=== PATIENT | male | born 1955 | race Caucasian/White ===

== ENCOUNTER 2023-07-18 09:30 | Outpatient (RCR) | payer OTHER, SELFPAY ==
--- NOTE | 2023-03-01 15:54 | PT.OIE ---
Current Diagnoses Pain in left shoulder (03/01/23) Stiffness of left shoulder, not elsewhere classified (03/01/23) Other specified postprocedural states (03/01/23) Visit Care Team Role Provider Type Quincy Reagan DO Attending Provider Non-Staff Referring Provider Specialty: Orthopedic Surgery Address: [facility] [place], [address] Email: Physical Therapy Initial Evaluation PT-OP-A Visit Information Start: 03/01/23 15:21 Freq: Status: Active Protocol: Document 03/01/23 12:05 DCW (Rec: 03/01/23 15:42 DCW [id number]) Out-Patient Physical Therapy Visit Information Visit Information Visit Type Initial Evaluation Visit Start Time 12:05 Visit Stop Time 12:45 Total Visit Minutes 40 Visit Number 1 Number of REJECTED ITEMS CLERK Visits 0 Evaluation Information Evaluation Date 03/01/23 PT-OP-B Current Condition Start: 03/01/23 15:21 Freq: Status: Active Protocol: Document 03/01/23 12:05 DCW (Rec: 03/01/23 15:42 DCW [id number]) Current Condition History of Current Condition Onset Date 08/17/22 Current Complaints L shoulder pain & stiffness s/ p arthroscopy, biceps tenotomy decompression History of Current Condition Pt is a 67 year old male presenting more than six months s/p L shoulder arthroscopy, biceps tenotomy decompression. Pt reports he underwent post-op therapy, but was discharged at the end of November, was told that they had done all they could for him. At pt's follow-up with his surgeon in December, surgeon felt he required more PT, including US and cold laser, and referred him to this clinic. Has been very compliant with prior HEP, but has not made much progress, and is fairly significantly limited with ROM, due to both weakness and pain. Unable to perform any overhead activities, or reach back or laterally. Unable to reach up to the top shelf at home. Prior Treatments and Tests Prior PT from post-op through November Treatment Goals Patient/Caregiver Goals Improve shoulder ROM and pain levels PT-OP-C Subjective Start: 03/01/23 15:21 Freq: Status: Active Protocol: Document 03/01/23 12:05 DCW (Rec: 03/01/23 15:42 DCW [id number]) OP-PT Subjective Patient Comments Patient Comments I've been using my pulleys, I use the bands, the stick exercises, it's just not getting any better. Patient Reported Progress Same Patient Questionnaires Quick Dash- Upper Extremity Quick Dash UE Score 6.82% Quick Dash UE Impairment 1 to 19% Impaired (Score 1-19) OP-PT Pain Assessment Location Left Shoulder Intensity 4 Scale Used Numeric (0 - 10) PT-OP-E Functional Tests Start: 03/01/23 15:21 Freq: Status: Active Protocol: Document 03/01/23 12:05 DCW (Rec: 03/01/23 15:42 DCW [id number]) Functional Tests Apley's Scratch Test Action 1- Left Anterior opposite shoulder Action 1- Right Lateral opposite shoulder Action 2- Left C6 Action 2- Right T2 Action 3- Left L2 Action 3- Right T8 PT-OP-F Manual Assessment Start: 03/01/23 15:21 Freq: Status: Active Protocol: Document 03/01/23 12:05 DCW (Rec: 03/01/23 15:42 DCW [id number]) Manual Assessments Joint Mobility Assessment Joint Mobility Assessment Limited PROM in joint mobility with all directions PT-OP-K Range of Motion Start: 03/01/23 15:21 Freq: Status: Active Protocol: Document 03/01/23 12:05 DCW (Rec: 03/01/23 15:42 DCW [id number]) Shoulder Goniometric Range of Motion Shoulder Right Active Shoulder ROM WFL Yes Testing Position Sitting Flexion 180 Abduction 160 External Rotation at 0 degrees Abduction 56 Internal Rotation Behind Back (text) T8 Left Passive Shoulder ROM WFL No Testing Position Supine Flexion 125 Abduction 109 External Rotation at 0 degrees Abduction 55 Left Active Shoulder ROM WFL No Testing Position Sitting Flexion 94 Abduction 73 External Rotation at 0 degrees Abduction 44 Internal Rotation Behind Back (text) L2 Shoulder ROM Limitations Shoulder ROM Limitations Soft Tissue Tightness,Muscle Weakness,Muscle Tone,Pain PT-OP-M Strength Start: 03/01/23 15:21 Freq: Status: Active Protocol: Document 03/01/23 12:05 DCW (Rec: 03/01/23 15:42 DCW [id number]) Shoulder Strength Shoulder Manual Muscle Testing Right Flexion 4+ Good+ Abduction (C5) 4+ Good+ External Rotation 4+ Good+ Internal Rotation 4+ Good+ Left Flexion 2 Poor Abduction (C5) 2+ Poor+ External Rotation 4 Good Internal Rotation 4+ Good+ Comments Increased pain with resisted flexion and external rotation PT-OP-R Modalities Start: 03/01/23 15:52 Freq: Status: Active Protocol: Document 03/01/23 12:05 DCW (Rec: 03/01/23 15:54 DCW [id number]) Infrared Treatment Treatment Left Anterior Shoulder Duration (Minutes) 2 Dosage (Joules) 124 Body Position Supine Continuous/Pulsed Continuous PT-OP-T Assessment and Plan Start: 03/01/23 15:21 Freq: Status: Active Protocol: Document 03/01/23 12:05 DCW (Rec: 03/01/23 15:52 DCW [id number]) Physical Therapy Assessment Rehab Potential Rehabilitation Potential Good Evaluation Complexity Number of Personal Factors/Comorbidities 1-2 Number of Body Systems Impaired 1-2 Clinical Presentation at Evaluation Stable Impairments Impairments Activity Tolerance,Functional Activities,Functional Mobility ,Pain,ROM,Soft Tissue Mobility ,Strength Goals Two Impairment Pt has difficulty participating in current HEP due to shoulder weakness Snf Goal (LTG) Pt to improve left shoulder strength to at least 3+/5 in order to improve ability to perform HEP, including overhead activities. LTG Duration 05/30/23 One Impairment Pt demonstrates significant limitations in L shoulder active ROM Assistant Research Scientist Goal (LTG) Pt to improve AROM in both flexion and abduction to at least 120? in order to improve ability to participate in oim architect and placing things away on higher shelves. LTG Duration 05/30/23 Assessment Summary Assessment Pt presents with significant limitations in ROM and weakness six months s/p L shoulder arthroscopy, biceps tenotomy decompression. Pt underwent PT elsewhere, reached a progress plateau, and was discharged. pt's surgeon feels he should be able to continue to progress, and would like continued focus on strengthening, ROM, and mobilization, as well as ultrasound and cold laser. Will benefit from extensive stretching, strengthening, and modalities. Physical Therapy Plan Frequency and Duration Frequency of Treatment 2x/Week Plan of Care Start Date 03/01/23 Plan of Care End Date 05/30/23 Therapeutic Interventions Therapeutic Interventions Gait Training,Home Exercise Program,Joint Mobilizations, Manual Therapy,Neuromuscular Re-education,Patient/Caregiver Education,Self-Care/Home Management,Soft Tissue Mobilization,Therapeutic Activities,Therapeutic Exercises Modalities Cold Pack/Ice Massage,Electric Stimulation,Hot Packs, Infrared Therapy,Ultrasound Next Visit Focus/Plan Next Note Type Treatment Note Next Visit Plan US, laser, Stretching/ flexibility, strengthening
--- NOTE | 2023-03-01 15:56 | PT.OPPOC ---
Physical, Occupational & Speech Therapy At [facility] Current Diagnoses Pain in left shoulder (03/01/23) Stiffness of left shoulder, not elsewhere classified (03/01/23) Other specified postprocedural states (03/01/23) Visit Care Team Role Provider Type Quincy Reagan DO Attending Provider Non-Staff Referring Provider Specialty: Orthopedic Surgery Address: [address] [place] [address], [id number] Email: Plan Of Care PT-OP-T Assessment and Plan Start: 03/01/23 15:21 Freq: Status: Active Protocol: Document 03/01/23 12:05 DCW (Rec: 03/01/23 15:52 DCW [id number]) Physical Therapy Assessment Rehab Potential Rehabilitation Potential Good Evaluation Complexity Number of Personal Factors/Comorbidities 1-2 Number of Body Systems Impaired 1-2 Clinical Presentation at Evaluation Stable Impairments Impairments Activity Tolerance,Functional Activities,Functional Mobility ,Pain,ROM,Soft Tissue Mobility ,Strength Goals Two Impairment Pt has difficulty participating in current HEP due to shoulder weakness Retail Seasonal Specialist Goal (LTG) Pt to improve left shoulder strength to at least 3+/5 in order to improve ability to perform HEP, including overhead activities. LTG Duration 05/30/23 One Impairment Pt demonstrates significant limitations in L shoulder active ROM Jail Goal (LTG) Pt to improve AROM in both flexion and abduction to at least 120? in order to improve ability to participate in director data and placing things away on higher shelves. LTG Duration 05/30/23 Assessment Summary Assessment Pt presents with significant limitations in ROM and weakness six months s/p L shoulder arthroscopy, biceps tenotomy decompression. Pt underwent PT elsewhere, reached a progress plateau, and was discharged. pt's surgeon feels he should be able to continue to progress, and would like continued focus on strengthening, ROM, and mobilization, as well as ultrasound and cold laser. Will benefit from extensive stretching, strengthening, and modalities. Physical Therapy Plan Frequency and Duration Frequency of Treatment 2x/Week Plan of Care Start Date 03/01/23 Plan of Care End Date 05/30/23 Therapeutic Interventions Therapeutic Interventions Gait Training,Home Exercise Program,Joint Mobilizations, Manual Therapy,Neuromuscular Re-education,Patient/Caregiver Education,Self-Care/Home Management,Soft Tissue Mobilization,Therapeutic Activities,Therapeutic Exercises Modalities Cold Pack/Ice Massage,Electric Stimulation,Hot Packs, Infrared Therapy,Ultrasound Next Visit Focus/Plan Next Note Type Treatment Note Next Visit Plan US, laser, Stretching/ flexibility, strengthening Plan of Care Dates Plan of Care Start Date 03/01/23 Plan of Care End Date 05/30/23 Electronically Signed by: Pierre Rosario, PT 03/01/23 4831 If you are in agreement with this Plan of Care, please return a signed and dated copy. I have reviewed this Plan of Care and certify that the skilled therapy services above are required to meet the patient?s needs. Physician Signature Date Printed Name and Credentials Clinical Instructor Signature Printed Name and Credentials
--- NOTE | 2023-05-02 11:03 | PT.OTN ---
Current Diagnoses Pain in left shoulder (05/02/23) Stiffness of left shoulder, not elsewhere classified (05/02/23) Other specified postprocedural states (05/02/23) Physical Therapy Treatment Note PT-OP-A Visit Information Start: 03/01/23 15:21 Freq: Status: Active Protocol: Document 05/02/23 10:15 DCW (Rec: 05/02/23 11:03 DCW [id number]) Out-Patient Physical Therapy Visit Information Visit Information Visit Type Treatment Note Visit Start Time 10:15 Visit Stop Time 11:00 Total Visit Minutes 45 Visit Number 2 Number of CHEMICAL PROCESS PROJECT ENGINEER Visits 0 Evaluation Information Evaluation Date 03/01/23 PT-OP-B Current Condition Start: 03/01/23 15:21 Freq: Status: Active Protocol: Document 03/01/23 12:05 DCW (Rec: 03/01/23 15:42 DCW [id number]) Current Condition History of Current Condition Onset Date 08/17/22 Current Complaints L shoulder pain & stiffness s/ p arthroscopy, biceps tenotomy decompression History of Current Condition Pt is a 67 year old male presenting more than six months s/p L shoulder arthroscopy, biceps tenotomy decompression. Pt reports he underwent post-op therapy, but was discharged at the end of November, was told that they had done all they could for him. At pt's follow-up with his surgeon in December, surgeon felt he required more PT, including US and cold laser, and referred him to this clinic. Has been very compliant with prior HEP, but has not made much progress, and is fairly significantly limited with ROM, due to both weakness and pain. Unable to perform any overhead activities, or reach back or laterally. Unable to reach up to the top shelf at home. Prior Treatments and Tests Prior PT from post-op through November Treatment Goals Patient/Caregiver Goals Improve shoulder ROM and pain levels PT-OP-C Subjective Start: 03/01/23 15:21 Freq: Status: Active Protocol: Document 05/02/23 10:15 DCW (Rec: 05/02/23 11:03 DCW [id number]) OP-PT Subjective Patient Comments Patient Comments Pt returns to PT today, reports he just got back from his trip yesterday, and while he wasn't able to do a lot of exercises, he was trying to stay active and used his arm a lot. PT-OP-E Functional Tests Start: 03/01/23 15:21 Freq: Status: Active Protocol: Document 03/01/23 12:05 DCW (Rec: 03/01/23 15:42 DCW [id number]) Functional Tests Apley's Scratch Test Action 1- Left Anterior opposite shoulder Action 1- Right Lateral opposite shoulder Action 2- Left C6 Action 2- Right T2 Action 3- Left L2 Action 3- Right T8 PT-OP-F Manual Assessment Start: 03/01/23 15:21 Freq: Status: Active Protocol: Document 03/01/23 12:05 DCW (Rec: 03/01/23 15:42 DCW [id number]) Manual Assessments Joint Mobility Assessment Joint Mobility Assessment Limited PROM in joint mobility with all directions PT-OP-K Range of Motion Start: 03/01/23 15:21 Freq: Status: Active Protocol: Document 03/01/23 12:05 DCW (Rec: 03/01/23 15:42 DCW [id number]) Shoulder Goniometric Range of Motion Shoulder Right Active Shoulder ROM WFL Yes Testing Position Sitting Flexion 180 Abduction 160 External Rotation at 0 degrees Abduction 56 Internal Rotation Behind Back (text) T8 Left Passive Shoulder ROM WFL No Testing Position Supine Flexion 125 Abduction 109 External Rotation at 0 degrees Abduction 55 Left Active Shoulder ROM WFL No Testing Position Sitting Flexion 94 Abduction 73 External Rotation at 0 degrees Abduction 44 Internal Rotation Behind Back (text) L2 Shoulder ROM Limitations Shoulder ROM Limitations Soft Tissue Tightness,Muscle Weakness,Muscle Tone,Pain PT-OP-M Strength Start: 03/01/23 15:21 Freq: Status: Active Protocol: Document 03/01/23 12:05 DCW (Rec: 03/01/23 15:42 DCW [id number]) Shoulder Strength Shoulder Manual Muscle Testing Right Flexion 4+ Good+ Abduction (C5) 4+ Good+ External Rotation 4+ Good+ Internal Rotation 4+ Good+ Left Flexion 2 Poor Abduction (C5) 2+ Poor+ External Rotation 4 Good Internal Rotation 4+ Good+ Comments Increased pain with resisted flexion and external rotation PT-OP-Q Treatments Start: 03/01/23 15:21 Freq: Status: Active Protocol: Document 05/02/23 10:15 DCW (Rec: 05/02/23 11:03 DCW [id number]) Cardio Equipment Upper Body Ergometer (UBE) Duration (Minutes) 5 RPM 60 Seat Position 13 Height 3 Therapeutic Exercises Supine Exercises Flexion Supine Exercise Name Flexion /c PVC Side bilateral Resistance 10# Sitting Exercises PROM Sitting Exercise Name Pulleys - Flexion, Abduction Manual Therapy Treatment Joint Mobilizations Scapulothoracic Joint L scapulothoracic Direction Medial/Lateral Grade III Body Position Supine GH Joint L GH Direction Inferior Grade III Body Position Supine PT-OP-R Modalities Start: 03/01/23 15:52 Freq: Status: Active Protocol: Document 05/02/23 10:15 DCW (Rec: 05/02/23 11:03 DCW [id number]) Infrared Treatment Treatment Left Anterior Shoulder Duration (Minutes) 2 Dosage (Joules) 124 Body Position Supine Continuous/Pulsed Continuous Ultrasound Therapy Treatment Left Anterior Shoulder Treatment Duration (minutes) 8 Patient Position Supine Coupling Medium Ultrasound Gel Applicator Size (cm2) 5 Frequency Setting (mHz) 1 Mode Setting Continuous Duty Cycle 100% Intensity Setting (w/cm2) 1.0 PT-OP-T Assessment and Plan Start: 03/01/23 15:21 Freq: Status: Active Protocol: Document 05/02/23 10:15 DCW (Rec: 05/02/23 11:03 DCW [id number]) Physical Therapy Assessment Impairments Impairments Activity Tolerance,Functional Activities,Functional Mobility ,Pain,ROM,Soft Tissue Mobility ,Strength Goals Two Impairment Pt has difficulty participating in current HEP due to shoulder weakness Half-Way Goal (LTG) Pt to improve left shoulder strength to at least 3+/5 in order to improve ability to perform HEP, including overhead activities. LTG Duration 05/30/23 One Impairment Pt demonstrates significant limitations in L shoulder active ROM Sorter Pricer Goal (LTG) Pt to improve AROM in both flexion and abduction to at least 120? in order to improve ability to participate in api product manager and placing things away on higher shelves. LTG Duration 05/30/23 Assessment Summary Assessment Pt tolerated treatment well, admitted he was a little sore following joint mobs. Was able to increase PROM from 125? on pulleys to 145? with supine flexion using a 10# weighted wand. Physical Therapy Plan Frequency and Duration Frequency of Treatment 2x/Week Plan of Care Start Date 03/01/23 Plan of Care End Date 05/30/23 Therapeutic Interventions Therapeutic Interventions Gait Training,Home Exercise Program,Joint Mobilizations, Manual Therapy,Neuromuscular Re-education,Patient/Caregiver Education,Self-Care/Home Management,Soft Tissue Mobilization,Therapeutic Activities,Therapeutic Exercises Modalities Cold Pack/Ice Massage,Electric Stimulation,Hot Packs, Infrared Therapy,Ultrasound Next Visit Focus/Plan Next Note Type Treatment Note Next Visit Plan US, laser, Stretching/ flexibility, strengthening
--- NOTE | 2023-05-06 10:59 | PT.OTN ---
Current Diagnoses Pain in left shoulder (05/06/23) Stiffness of left shoulder, not elsewhere classified (05/06/23) Other specified postprocedural states (05/06/23) Physical Therapy Treatment Note PT-OP-A Visit Information Start: 03/01/23 15:21 Freq: Status: Active Protocol: Document 05/06/23 10:15 DCW (Rec: 05/06/23 10:58 DCW [id number]) Out-Patient Physical Therapy Visit Information Visit Information Visit Type Treatment Note Visit Start Time 10:15 Visit Stop Time 11:00 Total Visit Minutes 45 Visit Number 3 Number of BUSINESS SYSTEMS ADVISOR Visits 0 Evaluation Information Evaluation Date 03/01/23 PT-OP-B Current Condition Start: 03/01/23 15:21 Freq: Status: Active Protocol: Document 03/01/23 12:05 DCW (Rec: 03/01/23 15:42 DCW [id number]) Current Condition History of Current Condition Onset Date 08/17/22 Current Complaints L shoulder pain & stiffness s/ p arthroscopy, biceps tenotomy decompression History of Current Condition Pt is a 67 year old male presenting more than six months s/p L shoulder arthroscopy, biceps tenotomy decompression. Pt reports he underwent post-op therapy, but was discharged at the end of November, was told that they had done all they could for him. At pt's follow-up with his surgeon in December, surgeon felt he required more PT, including US and cold laser, and referred him to this clinic. Has been very compliant with prior HEP, but has not made much progress, and is fairly significantly limited with ROM, due to both weakness and pain. Unable to perform any overhead activities, or reach back or laterally. Unable to reach up to the top shelf at home. Prior Treatments and Tests Prior PT from post-op through November Treatment Goals Patient/Caregiver Goals Improve shoulder ROM and pain levels PT-OP-C Subjective Start: 03/01/23 15:21 Freq: Status: Active Protocol: Document 05/06/23 10:15 DCW (Rec: 05/06/23 10:58 DCW [id number]) OP-PT Subjective Patient Comments Patient Comments Pt notes his shoulder is feeling pretty good today. PT-OP-E Functional Tests Start: 03/01/23 15:21 Freq: Status: Active Protocol: Document 03/01/23 12:05 DCW (Rec: 03/01/23 15:42 DCW [id number]) Functional Tests Apley's Scratch Test Action 1- Left Anterior opposite shoulder Action 1- Right Lateral opposite shoulder Action 2- Left C6 Action 2- Right T2 Action 3- Left L2 Action 3- Right T8 PT-OP-F Manual Assessment Start: 03/01/23 15:21 Freq: Status: Active Protocol: Document 03/01/23 12:05 DCW (Rec: 03/01/23 15:42 DCW [id number]) Manual Assessments Joint Mobility Assessment Joint Mobility Assessment Limited PROM in joint mobility with all directions PT-OP-K Range of Motion Start: 03/01/23 15:21 Freq: Status: Active Protocol: Document 03/01/23 12:05 DCW (Rec: 03/01/23 15:42 DCW [id number]) Shoulder Goniometric Range of Motion Shoulder Right Active Shoulder ROM WFL Yes Testing Position Sitting Flexion 180 Abduction 160 External Rotation at 0 degrees Abduction 56 Internal Rotation Behind Back (text) T8 Left Passive Shoulder ROM WFL No Testing Position Supine Flexion 125 Abduction 109 External Rotation at 0 degrees Abduction 55 Left Active Shoulder ROM WFL No Testing Position Sitting Flexion 94 Abduction 73 External Rotation at 0 degrees Abduction 44 Internal Rotation Behind Back (text) L2 Shoulder ROM Limitations Shoulder ROM Limitations Soft Tissue Tightness,Muscle Weakness,Muscle Tone,Pain PT-OP-M Strength Start: 03/01/23 15:21 Freq: Status: Active Protocol: Document 03/01/23 12:05 DCW (Rec: 03/01/23 15:42 DCW [id number]) Shoulder Strength Shoulder Manual Muscle Testing Right Flexion 4+ Good+ Abduction (C5) 4+ Good+ External Rotation 4+ Good+ Internal Rotation 4+ Good+ Left Flexion 2 Poor Abduction (C5) 2+ Poor+ External Rotation 4 Good Internal Rotation 4+ Good+ Comments Increased pain with resisted flexion and external rotation PT-OP-Q Treatments Start: 03/01/23 15:21 Freq: Status: Active Protocol: Document 05/06/23 10:15 DCW (Rec: 05/06/23 10:58 DCW [id number]) Cardio Equipment Upper Body Ergometer (UBE) Duration (Minutes) 6 RPM 60 Seat Position 13 Height 3 Therapeutic Exercises Supine Exercises Flexion Supine Exercise Name Flexion /c PVC Side bilateral Resistance 10# Sitting Exercises PROM Sitting Exercise Name Pulleys - Flexion, Abduction Standing Exercises Wall ball Standing Exercise Name Ball walk-up into end-range stretch Side left PROM Standing Exercise Name Pulleys - Internal Rotation Side left Manual Therapy Treatment Joint Mobilizations Scapulothoracic Joint L scapulothoracic Direction Medial/Lateral Grade III Body Position Supine GH Joint L GH Direction Inferior Grade III Body Position Supine PT-OP-R Modalities Start: 03/01/23 15:52 Freq: Status: Active Protocol: Document 05/06/23 10:15 DCW (Rec: 05/06/23 10:58 DCW [id number]) Infrared Treatment Treatment Left Anterior Shoulder Duration (Minutes) 2 Dosage (Joules) 124 Body Position Supine Continuous/Pulsed Continuous Ultrasound Therapy Treatment Left Anterior Shoulder Treatment Duration (minutes) 8 Patient Position Supine Coupling Medium Ultrasound Gel Applicator Size (cm2) 5 Frequency Setting (mHz) 1 Mode Setting Continuous Duty Cycle 100% Intensity Setting (w/cm2) 1.0 PT-OP-T Assessment and Plan Start: 03/01/23 15:21 Freq: Status: Active Protocol: Document 05/06/23 10:15 DCW (Rec: 05/06/23 10:58 DCW [id number]) Physical Therapy Assessment Impairments Impairments Activity Tolerance,Functional Activities,Functional Mobility ,Pain,ROM,Soft Tissue Mobility ,Strength Goals Two Impairment Pt has difficulty participating in current HEP due to shoulder weakness Cytology Technologist Goal (LTG) Pt to improve left shoulder strength to at least 3+/5 in order to improve ability to perform HEP, including overhead activities. LTG Duration 05/30/23 One Impairment Pt demonstrates significant limitations in L shoulder active ROM Cytology Technologist Goal (LTG) Pt to improve AROM in both flexion and abduction to at least 120? in order to improve ability to participate in noodle press operator and placing things away on higher shelves. LTG Duration 05/30/23 Assessment Summary Assessment Pt did very well today, agreeable to add norberto IR to HEP, less soreness with manual treatment/joint mobs today. Physical Therapy Plan Frequency and Duration Frequency of Treatment 2x/Week Plan of Care Start Date 03/01/23 Plan of Care End Date 05/30/23 Therapeutic Interventions Therapeutic Interventions Gait Training,Home Exercise Program,Joint Mobilizations, Manual Therapy,Neuromuscular Re-education,Patient/Caregiver Education,Self-Care/Home Management,Soft Tissue Mobilization,Therapeutic Activities,Therapeutic Exercises Modalities Cold Pack/Ice Massage,Electric Stimulation,Hot Packs, Infrared Therapy,Ultrasound Next Visit Focus/Plan Next Note Type Treatment Note Next Visit Plan US, laser, Stretching/ flexibility, strengthening
--- NOTE | 2023-05-09 11:00 | PT.OTN ---
Current Diagnoses Pain in left shoulder (05/09/23) Stiffness of left shoulder, not elsewhere classified (05/09/23) Other specified postprocedural states (05/09/23) Physical Therapy Treatment Note PT-OP-A Visit Information Start: 03/01/23 15:21 Freq: Status: Active Protocol: Document 05/09/23 10:15 DCW (Rec: 05/09/23 11:00 DCW [id number]) Out-Patient Physical Therapy Visit Information Visit Information Visit Type Treatment Note Visit Start Time 10:15 Visit Stop Time 11:00 Total Visit Minutes 45 Visit Number 4 Number of FORMULA TECHNICIAN Visits 0 Evaluation Information Evaluation Date 03/01/23 PT-OP-B Current Condition Start: 03/01/23 15:21 Freq: Status: Active Protocol: Document 03/01/23 12:05 DCW (Rec: 03/01/23 15:42 DCW [id number]) Current Condition History of Current Condition Onset Date 08/17/22 Current Complaints L shoulder pain & stiffness s/ p arthroscopy, biceps tenotomy decompression History of Current Condition Pt is a 67 year old male presenting more than six months s/p L shoulder arthroscopy, biceps tenotomy decompression. Pt reports he underwent post-op therapy, but was discharged at the end of November, was told that they had done all they could for him. At pt's follow-up with his surgeon in December, surgeon felt he required more PT, including US and cold laser, and referred him to this clinic. Has been very compliant with prior HEP, but has not made much progress, and is fairly significantly limited with ROM, due to both weakness and pain. Unable to perform any overhead activities, or reach back or laterally. Unable to reach up to the top shelf at home. Prior Treatments and Tests Prior PT from post-op through November Treatment Goals Patient/Caregiver Goals Improve shoulder ROM and pain levels PT-OP-C Subjective Start: 03/01/23 15:21 Freq: Status: Active Protocol: Document 05/09/23 10:15 DCW (Rec: 05/09/23 11:00 DCW [id number]) OP-PT Subjective Patient Comments Patient Comments Pt notes it is a little bit sore still when trying to lift his arm overhead. PT-OP-E Functional Tests Start: 03/01/23 15:21 Freq: Status: Active Protocol: Document 03/01/23 12:05 DCW (Rec: 03/01/23 15:42 DCW [id number]) Functional Tests Apley's Scratch Test Action 1- Left Anterior opposite shoulder Action 1- Right Lateral opposite shoulder Action 2- Left C6 Action 2- Right T2 Action 3- Left L2 Action 3- Right T8 PT-OP-F Manual Assessment Start: 03/01/23 15:21 Freq: Status: Active Protocol: Document 03/01/23 12:05 DCW (Rec: 03/01/23 15:42 DCW [id number]) Manual Assessments Joint Mobility Assessment Joint Mobility Assessment Limited PROM in joint mobility with all directions PT-OP-K Range of Motion Start: 03/01/23 15:21 Freq: Status: Active Protocol: Document 03/01/23 12:05 DCW (Rec: 03/01/23 15:42 DCW [id number]) Shoulder Goniometric Range of Motion Shoulder Right Active Shoulder ROM WFL Yes Testing Position Sitting Flexion 180 Abduction 160 External Rotation at 0 degrees Abduction 56 Internal Rotation Behind Back (text) T8 Left Passive Shoulder ROM WFL No Testing Position Supine Flexion 125 Abduction 109 External Rotation at 0 degrees Abduction 55 Left Active Shoulder ROM WFL No Testing Position Sitting Flexion 94 Abduction 73 External Rotation at 0 degrees Abduction 44 Internal Rotation Behind Back (text) L2 Shoulder ROM Limitations Shoulder ROM Limitations Soft Tissue Tightness,Muscle Weakness,Muscle Tone,Pain PT-OP-M Strength Start: 03/01/23 15:21 Freq: Status: Active Protocol: Document 03/01/23 12:05 DCW (Rec: 03/01/23 15:42 DCW [id number]) Shoulder Strength Shoulder Manual Muscle Testing Right Flexion 4+ Good+ Abduction (C5) 4+ Good+ External Rotation 4+ Good+ Internal Rotation 4+ Good+ Left Flexion 2 Poor Abduction (C5) 2+ Poor+ External Rotation 4 Good Internal Rotation 4+ Good+ Comments Increased pain with resisted flexion and external rotation PT-OP-Q Treatments Start: 03/01/23 15:21 Freq: Status: Active Protocol: Document 05/09/23 10:15 DCW (Rec: 05/09/23 11:00 DCW [id number]) Cardio Equipment Upper Body Ergometer (UBE) Duration (Minutes) 6 RPM 60 Seat Position 13 Height 4.5 Therapeutic Exercises Sidelying Exercises Abduction Sidelying Exercise Name Shoulder Abduction Side left Other Exercises Wall Push-ups Other Exercise Name Wall push-ups Reps/Minutes x15 each Comments <> and W hand positions Resisted ambulation Other Exercise Name Resisted UE side-stepping Resistance Green Manual Therapy Treatment Joint Mobilizations Scapulothoracic Joint L scapulothoracic Direction Medial/Lateral Grade III Body Position Supine GH Joint L GH Direction Inferior Grade III Body Position Supine PT-OP-R Modalities Start: 03/01/23 15:52 Freq: Status: Active Protocol: Document 05/09/23 10:15 DCW (Rec: 05/09/23 11:00 WYW [id number]) Infrared Treatment Treatment Left Anterior Shoulder Duration (Minutes) 2 Dosage (Joules) 124 Body Position Supine Continuous/Pulsed Continuous Ultrasound Therapy Treatment Left Anterior Shoulder Treatment Duration (minutes) 8 Patient Position Supine Coupling Medium Ultrasound Gel Applicator Size (cm2) 5 Frequency Setting (mHz) 1 Mode Setting Continuous Duty Cycle 100% Intensity Setting (w/cm2) 1.0 PT-OP-T Assessment and Plan Start: 03/01/23 15:21 Freq: Status: Active Protocol: Document 05/09/23 10:15 DCW (Rec: 05/09/23 11:00 [facility] [id number]) Physical Therapy Assessment Impairments Impairments Activity Tolerance,Functional Activities,Functional Mobility ,Pain,ROM,Soft Tissue Mobility ,Strength Goals Two Impairment Pt has difficulty participating in current HEP due to shoulder weakness Shelter Goal (LTG) Pt to improve left shoulder strength to at least 3+/5 in order to improve ability to perform HEP, including overhead activities. LTG Duration 05/30/23 One Impairment Pt demonstrates significant limitations in L shoulder active ROM Yarder Puncher Goal (LTG) Pt to improve AROM in both flexion and abduction to at least 120? in order to improve ability to participate in sergeant of corrections and placing things away on higher shelves. LTG Duration 05/30/23 Assessment Summary Assessment PROM still improving nicely, although pt not demonstrating any real improvement with AROM yet. Still tolerating joint mobs well, has been very compliant with his HEP. Physical Therapy Plan Frequency and Duration Frequency of Treatment 2x/Week Plan of Care Start Date 03/01/23 Plan of Care End Date 05/30/23 Therapeutic Interventions Therapeutic Interventions Gait Training,Home Exercise Program,Joint Mobilizations, Manual Therapy,Neuromuscular Re-education,Patient/Caregiver Education,Self-Care/Home Management,Soft Tissue Mobilization,Therapeutic Activities,Therapeutic Exercises Modalities Cold Pack/Ice Massage,Electric Stimulation,Hot Packs, Infrared Therapy,Ultrasound Next Visit Focus/Plan Next Note Type Treatment Note Next Visit Plan US, laser, Stretching/ flexibility, strengthening
--- NOTE | 2023-05-13 10:57 | PT.OTN ---
Current Diagnoses Pain in left shoulder (05/13/23) Stiffness of left shoulder, not elsewhere classified (05/13/23) Other specified postprocedural states (05/13/23) Physical Therapy Treatment Note PT-OP-A Visit Information Start: 03/01/23 15:21 Freq: Status: Active Protocol: Document 05/13/23 10:15 DCW (Rec: 05/13/23 10:57 DCW [id number]) Out-Patient Physical Therapy Visit Information Visit Information Visit Type Treatment Note Visit Start Time 10:15 Visit Stop Time 11:00 Total Visit Minutes 45 Visit Number 5 Number of PROBATION SUPERVISOR Visits 0 Evaluation Information Evaluation Date 03/01/23 PT-OP-B Current Condition Start: 03/01/23 15:21 Freq: Status: Active Protocol: Document 03/01/23 12:05 DCW (Rec: 03/01/23 15:42 DCW [id number]) Current Condition History of Current Condition Onset Date 08/17/22 Current Complaints L shoulder pain & stiffness s/ p arthroscopy, biceps tenotomy decompression History of Current Condition Pt is a 67 year old male presenting more than six months s/p L shoulder arthroscopy, biceps tenotomy decompression. Pt reports he underwent post-op therapy, but was discharged at the end of November, was told that they had done all they could for him. At pt's follow-up with his surgeon in December, surgeon felt he required more PT, including US and cold laser, and referred him to this clinic. Has been very compliant with prior HEP, but has not made much progress, and is fairly significantly limited with ROM, due to both weakness and pain. Unable to perform any overhead activities, or reach back or laterally. Unable to reach up to the top shelf at home. Prior Treatments and Tests Prior PT from post-op through November Treatment Goals Patient/Caregiver Goals Improve shoulder ROM and pain levels PT-OP-C Subjective Start: 03/01/23 15:21 Freq: Status: Active Protocol: Document 05/13/23 10:15 DCW (Rec: 05/13/23 10:57 DCW [id number]) OP-PT Subjective Patient Comments Patient Comments It's a little sore, but not too bad. PT-OP-E Functional Tests Start: 03/01/23 15:21 Freq: Status: Active Protocol: Document 03/01/23 12:05 DCW (Rec: 03/01/23 15:42 DCW [id number]) Functional Tests Apley's Scratch Test Action 1- Left Anterior opposite shoulder Action 1- Right Lateral opposite shoulder Action 2- Left C6 Action 2- Right T2 Action 3- Left L2 Action 3- Right T8 PT-OP-F Manual Assessment Start: 03/01/23 15:21 Freq: Status: Active Protocol: Document 03/01/23 12:05 DCW (Rec: 03/01/23 15:42 DCW [id number]) Manual Assessments Joint Mobility Assessment Joint Mobility Assessment Limited PROM in joint mobility with all directions PT-OP-K Range of Motion Start: 03/01/23 15:21 Freq: Status: Active Protocol: Document 03/01/23 12:05 DCW (Rec: 03/01/23 15:42 DCW [id number]) Shoulder Goniometric Range of Motion Shoulder Right Active Shoulder ROM WFL Yes Testing Position Sitting Flexion 180 Abduction 160 External Rotation at 0 degrees Abduction 56 Internal Rotation Behind Back (text) T8 Left Passive Shoulder ROM WFL No Testing Position Supine Flexion 125 Abduction 109 External Rotation at 0 degrees Abduction 55 Left Active Shoulder ROM WFL No Testing Position Sitting Flexion 94 Abduction 73 External Rotation at 0 degrees Abduction 44 Internal Rotation Behind Back (text) L2 Shoulder ROM Limitations Shoulder ROM Limitations Soft Tissue Tightness,Muscle Weakness,Muscle Tone,Pain PT-OP-M Strength Start: 03/01/23 15:21 Freq: Status: Active Protocol: Document 03/01/23 12:05 DCW (Rec: 03/01/23 15:42 DCW [id number]) Shoulder Strength Shoulder Manual Muscle Testing Right Flexion 4+ Good+ Abduction (C5) 4+ Good+ External Rotation 4+ Good+ Internal Rotation 4+ Good+ Left Flexion 2 Poor Abduction (C5) 2+ Poor+ External Rotation 4 Good Internal Rotation 4+ Good+ Comments Increased pain with resisted flexion and external rotation PT-OP-Q Treatments Start: 03/01/23 15:21 Freq: Status: Active Protocol: Document 05/13/23 10:15 DCW (Rec: 05/13/23 10:57 DCW [id number]) Cardio Equipment Upper Body Ergometer (UBE) Duration (Minutes) 6 RPM 60 Seat Position 13 Height 4.5 Therapeutic Exercises Supine Exercises Flexion Supine Exercise Name Flexion /c PVC Side bilateral Resistance 10# Other Exercises Wall clock Other Exercise Name Wall clock Side bilateral Resistance Green Wall Push-ups Other Exercise Name Wall push-ups Reps/Minutes x15 each Comments <> and W hand positions Resisted ambulation Other Exercise Name Resisted UE side-stepping Resistance Green Manual Therapy Treatment Joint Mobilizations Scapulothoracic Joint L scapulothoracic Direction Medial/Lateral Grade III Body Position Supine GH Joint L GH Direction Inferior Grade III Body Position Supine PT-OP-R Modalities Start: 03/01/23 15:52 Freq: Status: Active Protocol: Document 05/13/23 10:15 DCW (Rec: 05/13/23 10:57 DCW [id number]) Infrared Treatment Treatment Left Anterior Shoulder Duration (Minutes) 2 Dosage (Joules) 124 Body Position Supine Continuous/Pulsed Continuous Ultrasound Therapy Treatment Left Anterior Shoulder Treatment Duration (minutes) 8 Patient Position Supine Coupling Medium Ultrasound Gel Applicator Size (cm2) 5 Frequency Setting (mHz) 1 Mode Setting Continuous Duty Cycle 100% Intensity Setting (w/cm2) 1.0 PT-OP-T Assessment and Plan Start: 03/01/23 15:21 Freq: Status: Active Protocol: Document 05/13/23 10:15 DCW (Rec: 05/13/23 10:57 DCW [id number]) Physical Therapy Assessment Impairments Impairments Activity Tolerance,Functional Activities,Functional Mobility ,Pain,ROM,Soft Tissue Mobility ,Strength Goals Two Impairment Pt has difficulty participating in current HEP due to shoulder weakness Phys Ther Goal (LTG) Pt to improve left shoulder strength to at least 3+/5 in order to improve ability to perform HEP, including overhead activities. LTG Duration 05/30/23 One Impairment Pt demonstrates significant limitations in L shoulder active ROM Phys Ther Goal (LTG) Pt to improve AROM in both flexion and abduction to at least 120? in order to improve ability to participate in low raw sugar cutter and placing things away on higher shelves. LTG Duration 05/30/23 Assessment Summary Assessment Pt showing improvement with strength and activity tolerance through left arm, tolerating treatment well today. Physical Therapy Plan Frequency and Duration Frequency of Treatment 2x/Week Plan of Care Start Date 03/01/23 Plan of Care End Date 05/30/23 Therapeutic Interventions Therapeutic Interventions Gait Training,Home Exercise Program,Joint Mobilizations, Manual Therapy,Neuromuscular Re-education,Patient/Caregiver Education,Self-Care/Home Management,Soft Tissue Mobilization,Therapeutic Activities,Therapeutic Exercises Modalities Cold Pack/Ice Massage,Electric Stimulation,Hot Packs, Infrared Therapy,Ultrasound Next Visit Focus/Plan Next Note Type Treatment Note Next Visit Plan US, laser, Stretching/ flexibility, strengthening
--- NOTE | 2023-05-16 10:58 | PT.OTN ---
Current Diagnoses Pain in left shoulder (05/16/23) Stiffness of left shoulder, not elsewhere classified (05/16/23) Other specified postprocedural states (05/16/23) Physical Therapy Treatment Note PT-OP-A Visit Information Start: 03/01/23 15:21 Freq: Status: Active Protocol: Document 05/16/23 10:15 DCW (Rec: 05/16/23 10:58 DCW [id number]) Out-Patient Physical Therapy Visit Information Visit Information Visit Type Treatment Note Visit Start Time 10:15 Visit Stop Time 11:00 Total Visit Minutes 45 Visit Number 5 Number of VIDEO PRODUCTION INTERN Visits 0 Evaluation Information Evaluation Date 03/01/23 PT-OP-B Current Condition Start: 03/01/23 15:21 Freq: Status: Active Protocol: Document 03/01/23 12:05 DCW (Rec: 03/01/23 15:42 DCW [id number]) Current Condition History of Current Condition Onset Date 08/17/22 Current Complaints L shoulder pain & stiffness s/ p arthroscopy, biceps tenotomy decompression History of Current Condition Pt is a 67 year old male presenting more than six months s/p L shoulder arthroscopy, biceps tenotomy decompression. Pt reports he underwent post-op therapy, but was discharged at the end of November, was told that they had done all they could for him. At pt's follow-up with his surgeon in December, surgeon felt he required more PT, including US and cold laser, and referred him to this clinic. Has been very compliant with prior HEP, but has not made much progress, and is fairly significantly limited with ROM, due to both weakness and pain. Unable to perform any overhead activities, or reach back or laterally. Unable to reach up to the top shelf at home. Prior Treatments and Tests Prior PT from post-op through November Treatment Goals Patient/Caregiver Goals Improve shoulder ROM and pain levels PT-OP-C Subjective Start: 03/01/23 15:21 Freq: Status: Active Protocol: Document 05/16/23 10:15 DCW (Rec: 05/16/23 10:58 DCW [id number]) OP-PT Subjective Patient Comments Patient Comments Pt can't really tell if there has been much improvement in day to day function. PT-OP-E Functional Tests Start: 03/01/23 15:21 Freq: Status: Active Protocol: Document 03/01/23 12:05 DCW (Rec: 03/01/23 15:42 DCW [id number]) Functional Tests Apley's Scratch Test Action 1- Left Anterior opposite shoulder Action 1- Right Lateral opposite shoulder Action 2- Left C6 Action 2- Right T2 Action 3- Left L2 Action 3- Right T8 PT-OP-F Manual Assessment Start: 03/01/23 15:21 Freq: Status: Active Protocol: Document 03/01/23 12:05 DCW (Rec: 03/01/23 15:42 DCW [id number]) Manual Assessments Joint Mobility Assessment Joint Mobility Assessment Limited PROM in joint mobility with all directions PT-OP-K Range of Motion Start: 03/01/23 15:21 Freq: Status: Active Protocol: Document 03/01/23 12:05 DCW (Rec: 03/01/23 15:42 DCW [id number]) Shoulder Goniometric Range of Motion Shoulder Right Active Shoulder ROM WFL Yes Testing Position Sitting Flexion 180 Abduction 160 External Rotation at 0 degrees Abduction 56 Internal Rotation Behind Back (text) T8 Left Passive Shoulder ROM WFL No Testing Position Supine Flexion 125 Abduction 109 External Rotation at 0 degrees Abduction 55 Left Active Shoulder ROM WFL No Testing Position Sitting Flexion 94 Abduction 73 External Rotation at 0 degrees Abduction 44 Internal Rotation Behind Back (text) L2 Shoulder ROM Limitations Shoulder ROM Limitations Soft Tissue Tightness,Muscle Weakness,Muscle Tone,Pain PT-OP-M Strength Start: 03/01/23 15:21 Freq: Status: Active Protocol: Document 03/01/23 12:05 DCW (Rec: 03/01/23 15:42 DCW [id number]) Shoulder Strength Shoulder Manual Muscle Testing Right Flexion 4+ Good+ Abduction (C5) 4+ Good+ External Rotation 4+ Good+ Internal Rotation 4+ Good+ Left Flexion 2 Poor Abduction (C5) 2+ Poor+ External Rotation 4 Good Internal Rotation 4+ Good+ Comments Increased pain with resisted flexion and external rotation PT-OP-Q Treatments Start: 03/01/23 15:21 Freq: Status: Active Protocol: Document 05/16/23 10:15 DCW (Rec: 05/16/23 10:58 DCW [id number]) Cardio Equipment Upper Body Ergometer (UBE) Duration (Minutes) 6 RPM 60 Seat Position 12 Height 5 Therapeutic Exercises Other Exercises Wall clock Other Exercise Name Wall clock Side bilateral Resistance Green Resisted ambulation Other Exercise Name Resisted UE side-stepping Resistance Green Manual Therapy Treatment Joint Mobilizations Scapulothoracic Joint L scapulothoracic Direction Medial/Lateral Grade III Body Position Supine GH Joint L GH Direction Inferior Grade III Body Position Supine PT-OP-R Modalities Start: 03/01/23 15:52 Freq: Status: Active Protocol: Document 05/16/23 10:15 DCW (Rec: 05/16/23 10:58 DCW [id number]) Infrared Treatment Treatment Left Anterior Shoulder Duration (Minutes) 2 Dosage (Joules) 124 Body Position Supine Continuous/Pulsed Continuous Ultrasound Therapy Treatment Left Anterior Shoulder Treatment Duration (minutes) 8 Patient Position Supine Coupling Medium Ultrasound Gel Applicator Size (cm2) 5 Frequency Setting (mHz) 1 Mode Setting Continuous Duty Cycle 100% Intensity Setting (w/cm2) 1.0 PT-OP-T Assessment and Plan Start: 03/01/23 15:21 Freq: Status: Active Protocol: Document 05/16/23 10:15 DCW (Rec: 05/16/23 10:58 DCW [id number]) Physical Therapy Assessment Impairments Impairments Activity Tolerance,Functional Activities,Functional Mobility ,Pain,ROM,Soft Tissue Mobility ,Strength Goals Two Impairment Pt has difficulty participating in current HEP due to shoulder weakness Mcc Goal (LTG) Pt to improve left shoulder strength to at least 3+/5 in order to improve ability to perform HEP, including overhead activities. LTG Duration 05/30/23 One Impairment Pt demonstrates significant limitations in L shoulder active ROM Mcc Goal (LTG) Pt to improve AROM in both flexion and abduction to at least 120? in order to improve ability to participate in consultant rn and placing things away on higher shelves. LTG Duration 05/30/23 Assessment Summary Assessment Pt improving PROM slowly, not yet translating to much AROM improvement. Continue to focus on shoulder strengthening and flexibility. Physical Therapy Plan Frequency and Duration Frequency of Treatment 2x/Week Plan of Care Start Date 03/01/23 Plan of Care End Date 05/30/23 Therapeutic Interventions Therapeutic Interventions Gait Training,Home Exercise Program,Joint Mobilizations, Manual Therapy,Neuromuscular Re-education,Patient/Caregiver Education,Self-Care/Home Management,Soft Tissue Mobilization,Therapeutic Activities,Therapeutic Exercises Modalities Cold Pack/Ice Massage,Electric Stimulation,Hot Packs, Infrared Therapy,Ultrasound Next Visit Focus/Plan Next Note Type Treatment Note Next Visit Plan US, laser, Stretching/ flexibility, strengthening
--- NOTE | 2023-05-20 11:01 | PT.OTN ---
Current Diagnoses Pain in left shoulder (05/20/23) Stiffness of left shoulder, not elsewhere classified (05/20/23) Other specified postprocedural states (05/20/23) Physical Therapy Treatment Note PT-OP-A Visit Information Start: 03/01/23 15:21 Freq: Status: Active Protocol: Document 05/20/23 10:15 DCW (Rec: 05/20/23 11:01 DCW [id number]) Out-Patient Physical Therapy Visit Information Visit Information Visit Type Treatment Note Visit Start Time 10:15 Visit Stop Time 11:00 Total Visit Minutes 45 Visit Number 6 Number of BOTTOM CAGER Visits 0 Evaluation Information Evaluation Date 03/01/23 PT-OP-B Current Condition Start: 03/01/23 15:21 Freq: Status: Active Protocol: Document 03/01/23 12:05 DCW (Rec: 03/01/23 15:42 DCW [id number]) Current Condition History of Current Condition Onset Date 08/17/22 Current Complaints L shoulder pain & stiffness s/ p arthroscopy, biceps tenotomy decompression History of Current Condition Pt is a 67 year old male presenting more than six months s/p L shoulder arthroscopy, biceps tenotomy decompression. Pt reports he underwent post-op therapy, but was discharged at the end of November, was told that they had done all they could for him. At pt's follow-up with his surgeon in December, surgeon felt he required more PT, including US and cold laser, and referred him to this clinic. Has been very compliant with prior HEP, but has not made much progress, and is fairly significantly limited with ROM, due to both weakness and pain. Unable to perform any overhead activities, or reach back or laterally. Unable to reach up to the top shelf at home. Prior Treatments and Tests Prior PT from post-op through November Treatment Goals Patient/Caregiver Goals Improve shoulder ROM and pain levels PT-OP-C Subjective Start: 03/01/23 15:21 Freq: Status: Active Protocol: Document 05/20/23 10:15 DCW (Rec: 05/20/23 11:01 DCW [id number]) OP-PT Subjective Patient Comments Patient Comments I got some good exercise in my shoulder this weekend. PT-OP-E Functional Tests Start: 03/01/23 15:21 Freq: Status: Active Protocol: Document 03/01/23 12:05 DCW (Rec: 03/01/23 15:42 DCW [id number]) Functional Tests Apley's Scratch Test Action 1- Left Anterior opposite shoulder Action 1- Right Lateral opposite shoulder Action 2- Left C6 Action 2- Right T2 Action 3- Left L2 Action 3- Right T8 PT-OP-F Manual Assessment Start: 03/01/23 15:21 Freq: Status: Active Protocol: Document 03/01/23 12:05 DCW (Rec: 03/01/23 15:42 DCW [id number]) Manual Assessments Joint Mobility Assessment Joint Mobility Assessment Limited PROM in joint mobility with all directions PT-OP-K Range of Motion Start: 03/01/23 15:21 Freq: Status: Active Protocol: Document 03/01/23 12:05 DCW (Rec: 03/01/23 15:42 DCW [id number]) Shoulder Goniometric Range of Motion Shoulder Right Active Shoulder ROM WFL Yes Testing Position Sitting Flexion 180 Abduction 160 External Rotation at 0 degrees Abduction 56 Internal Rotation Behind Back (text) T8 Left Passive Shoulder ROM WFL No Testing Position Supine Flexion 125 Abduction 109 External Rotation at 0 degrees Abduction 55 Left Active Shoulder ROM WFL No Testing Position Sitting Flexion 94 Abduction 73 External Rotation at 0 degrees Abduction 44 Internal Rotation Behind Back (text) L2 Shoulder ROM Limitations Shoulder ROM Limitations Soft Tissue Tightness,Muscle Weakness,Muscle Tone,Pain PT-OP-M Strength Start: 03/01/23 15:21 Freq: Status: Active Protocol: Document 03/01/23 12:05 DCW (Rec: 03/01/23 15:42 DCW [id number]) Shoulder Strength Shoulder Manual Muscle Testing Right Flexion 4+ Good+ Abduction (C5) 4+ Good+ External Rotation 4+ Good+ Internal Rotation 4+ Good+ Left Flexion 2 Poor Abduction (C5) 2+ Poor+ External Rotation 4 Good Internal Rotation 4+ Good+ Comments Increased pain with resisted flexion and external rotation PT-OP-Q Treatments Start: 03/01/23 15:21 Freq: Status: Active Protocol: Document 05/20/23 10:15 DCW (Rec: 05/20/23 11:01 DCW [id number]) Cardio Equipment Upper Body Ergometer (UBE) Duration (Minutes) 6 RPM 60 Seat Position 12 Height 5.5 Therapeutic Exercises Other Exercises Wall clock Other Exercise Name Wall clock Side bilateral Resistance Green Wall Push-ups Other Exercise Name Wall push-ups Reps/Minutes x15 each Comments <> and W hand positions Resisted ambulation Other Exercise Name Resisted UE side-stepping Resistance Green Manual Therapy Treatment Joint Mobilizations Scapulothoracic Joint L scapulothoracic Direction Medial/Lateral Grade III Body Position Supine GH Joint L GH Direction Inferior Grade III Body Position Supine PT-OP-R Modalities Start: 03/01/23 15:52 Freq: Status: Active Protocol: Document 05/20/23 10:15 DCW (Rec: 05/20/23 11:01 [facility] [id number]) Infrared Treatment Treatment Left Anterior Shoulder Duration (Minutes) 2 Dosage (Joules) 124 Body Position Supine Continuous/Pulsed Continuous Ultrasound Therapy Treatment Left Anterior Shoulder Treatment Duration (minutes) 8 Patient Position Supine Coupling Medium Ultrasound Gel Applicator Size (cm2) 5 Frequency Setting (mHz) 1 Mode Setting Continuous Duty Cycle 100% Intensity Setting (w/cm2) 1.0 PT-OP-T Assessment and Plan Start: 03/01/23 15:21 Freq: Status: Active Protocol: Document 05/20/23 10:15 DCW (Rec: 05/20/23 11:01 [facility] [id number]) Physical Therapy Assessment Impairments Impairments Activity Tolerance,Functional Activities,Functional Mobility ,Pain,ROM,Soft Tissue Mobility ,Strength Goals Two Impairment Pt has difficulty participating in current HEP due to shoulder weakness Bed Maker Goal (LTG) Pt to improve left shoulder strength to at least 3+/5 in order to improve ability to perform HEP, including overhead activities. LTG Duration 05/30/23 One Impairment Pt demonstrates significant limitations in L shoulder active ROM Bed Maker Goal (LTG) Pt to improve AROM in both flexion and abduction to at least 120? in order to improve ability to participate in health data administrator and placing things away on higher shelves. LTG Duration 05/30/23 Assessment Summary Assessment Pt continues to present with a relative plateau of AROM, minimal progress so far. If pt does not show improvement over the next 1-2 weeks, my need to return to PCP for next options. Physical Therapy Plan Frequency and Duration Frequency of Treatment 2x/Week Plan of Care Start Date 03/01/23 Plan of Care End Date 05/30/23 Therapeutic Interventions Therapeutic Interventions Gait Training,Home Exercise Program,Joint Mobilizations, Manual Therapy,Neuromuscular Re-education,Patient/Caregiver Education,Self-Care/Home Management,Soft Tissue Mobilization,Therapeutic Activities,Therapeutic Exercises Modalities Cold Pack/Ice Massage,Electric Stimulation,Hot Packs, Infrared Therapy,Ultrasound Next Visit Focus/Plan Next Note Type Treatment Note Next Visit Plan US, laser, Stretching/ flexibility, strengthening
--- NOTE | 2023-05-23 11:02 | PT.OTN ---
Current Diagnoses Pain in left shoulder (05/23/23) Stiffness of left shoulder, not elsewhere classified (05/23/23) Other specified postprocedural states (05/23/23) Physical Therapy Treatment Note PT-OP-A Visit Information Start: 03/01/23 15:21 Freq: Status: Active Protocol: Document 05/23/23 10:15 DCW (Rec: 05/23/23 11:02 DCW [id number]) Out-Patient Physical Therapy Visit Information Visit Information Visit Type Treatment Note Visit Start Time 10:15 Visit Stop Time 11:00 Total Visit Minutes 45 Visit Number 7 Number of MEDICINAL CHEMIST Visits 0 Evaluation Information Evaluation Date 03/01/23 PT-OP-B Current Condition Start: 03/01/23 15:21 Freq: Status: Active Protocol: Document 03/01/23 12:05 DCW (Rec: 03/01/23 15:42 DCW [id number]) Current Condition History of Current Condition Onset Date 08/17/22 Current Complaints L shoulder pain & stiffness s/ p arthroscopy, biceps tenotomy decompression History of Current Condition Pt is a 67 year old male presenting more than six months s/p L shoulder arthroscopy, biceps tenotomy decompression. Pt reports he underwent post-op therapy, but was discharged at the end of November, was told that they had done all they could for him. At pt's follow-up with his surgeon in December, surgeon felt he required more PT, including US and cold laser, and referred him to this clinic. Has been very compliant with prior HEP, but has not made much progress, and is fairly significantly limited with ROM, due to both weakness and pain. Unable to perform any overhead activities, or reach back or laterally. Unable to reach up to the top shelf at home. Prior Treatments and Tests Prior PT from post-op through November Treatment Goals Patient/Caregiver Goals Improve shoulder ROM and pain levels PT-OP-C Subjective Start: 03/01/23 15:21 Freq: Status: Active Protocol: Document 05/23/23 10:15 DCW (Rec: 05/23/23 11:02 DCW [id number]) OP-PT Subjective Patient Comments Patient Comments I think it's going alright. PT-OP-E Functional Tests Start: 03/01/23 15:21 Freq: Status: Active Protocol: Document 03/01/23 12:05 DCW (Rec: 03/01/23 15:42 DCW [id number]) Functional Tests Apley's Scratch Test Action 1- Left Anterior opposite shoulder Action 1- Right Lateral opposite shoulder Action 2- Left C6 Action 2- Right T2 Action 3- Left L2 Action 3- Right T8 PT-OP-F Manual Assessment Start: 03/01/23 15:21 Freq: Status: Active Protocol: Document 03/01/23 12:05 DCW (Rec: 03/01/23 15:42 DCW [id number]) Manual Assessments Joint Mobility Assessment Joint Mobility Assessment Limited PROM in joint mobility with all directions PT-OP-K Range of Motion Start: 03/01/23 15:21 Freq: Status: Active Protocol: Document 05/23/23 10:15 DCW (Rec: 05/23/23 10:36 DCW [id number]) Shoulder Goniometric Range of Motion Shoulder Left Passive Shoulder ROM WFL No Testing Position Supine Flexion 145 Abduction 152 External Rotation at 0 degrees Abduction 60 Left Active Shoulder ROM WFL No Testing Position Standing Flexion 111 Abduction 85 External Rotation at 0 degrees Abduction 44 Internal Rotation Behind Back (text) L2 PT-OP-M Strength Start: 03/01/23 15:21 Freq: Status: Active Protocol: Document 03/01/23 12:05 DCW (Rec: 03/01/23 15:42 DCW [id number]) Shoulder Strength Shoulder Manual Muscle Testing Right Flexion 4+ Good+ Abduction (C5) 4+ Good+ External Rotation 4+ Good+ Internal Rotation 4+ Good+ Left Flexion 2 Poor Abduction (C5) 2+ Poor+ External Rotation 4 Good Internal Rotation 4+ Good+ Comments Increased pain with resisted flexion and external rotation PT-OP-Q Treatments Start: 03/01/23 15:21 Freq: Status: Active Protocol: Document 05/23/23 10:15 DCW (Rec: 05/23/23 11:02 DCW [id number]) Cardio Equipment Upper Body Ergometer (UBE) Duration (Minutes) 6 RPM 60 Seat Position 12 Height 5.5 Therapeutic Exercises Other Exercises Wall clock Other Exercise Name Wall clock Side bilateral Resistance Green Resisted ambulation Other Exercise Name Resisted UE side-stepping Resistance Green Manual Therapy Treatment Joint Mobilizations Scapulothoracic Joint L scapulothoracic Direction Medial/Lateral Grade III Body Position Supine GH Joint L GH Direction Inferior Grade III Body Position Supine PT-OP-R Modalities Start: 03/01/23 15:52 Freq: Status: Active Protocol: Document 05/23/23 10:15 DCW (Rec: 05/23/23 11:02 DCW [id number]) Infrared Treatment Treatment Left Anterior Shoulder Duration (Minutes) 2 Dosage (Joules) 124 Body Position Supine Continuous/Pulsed Continuous Ultrasound Therapy Treatment Left Anterior Shoulder Treatment Duration (minutes) 8 Patient Position Supine Coupling Medium Ultrasound Gel Applicator Size (cm2) 5 Frequency Setting (mHz) 1 Mode Setting Continuous Duty Cycle 100% Intensity Setting (w/cm2) 1.0 PT-OP-T Assessment and Plan Start: 03/01/23 15:21 Freq: Status: Active Protocol: Document 05/23/23 10:15 DCW (Rec: 05/23/23 11:02 DCW [id number]) Physical Therapy Assessment Impairments Impairments Activity Tolerance,Functional Activities,Functional Mobility ,Pain,ROM,Soft Tissue Mobility ,Strength Goals Two Impairment Pt has difficulty participating in current HEP due to shoulder weakness Custodial Goal (LTG) Pt to improve left shoulder strength to at least 3+/5 in order to improve ability to perform HEP, including overhead activities. LTG Duration 05/30/23 One Impairment Pt demonstrates significant limitations in L shoulder active ROM Custodial Goal (LTG) Pt to improve AROM in both flexion and abduction to at least 120? in order to improve ability to participate in instructional support assistant and placing things away on higher shelves. LTG Duration 05/30/23 Assessment Summary Assessment PROM has improved from 125? to 145? flexion and 109? to 152? abduction, AROM also showing some, but not as much, improvement, with flexion improving from 94? to 111? and abduction from 73? to 85?. Will likely begin to focus more on strengthening and end range stretching. Physical Therapy Plan Frequency and Duration Frequency of Treatment 2x/Week Plan of Care Start Date 03/01/23 Plan of Care End Date 05/30/23 Therapeutic Interventions Therapeutic Interventions Gait Training,Home Exercise Program,Joint Mobilizations, Manual Therapy,Neuromuscular Re-education,Patient/Caregiver Education,Self-Care/Home Management,Soft Tissue Mobilization,Therapeutic Activities,Therapeutic Exercises Modalities Cold Pack/Ice Massage,Electric Stimulation,Hot Packs, Infrared Therapy,Ultrasound Next Visit Focus/Plan Next Note Type Treatment Note Next Visit Plan US, laser, Stretching/ flexibility, strengthening
--- NOTE | 2023-05-27 11:00 | PT.OTN ---
Current Diagnoses Pain in left shoulder (05/27/23) Stiffness of left shoulder, not elsewhere classified (05/27/23) Other specified postprocedural states (05/27/23) Physical Therapy Treatment Note PT-OP-A Visit Information Start: 03/01/23 15:21 Freq: Status: Active Protocol: Document 05/27/23 10:15 DCW (Rec: 05/27/23 11:00 DCW [id number]) Out-Patient Physical Therapy Visit Information Visit Information Visit Type Treatment Note Visit Start Time 10:15 Visit Stop Time 11:00 Total Visit Minutes 45 Visit Number 8 Number of SENIOR BENEFITS ANALYST Visits 0 Evaluation Information Evaluation Date 03/01/23 PT-OP-B Current Condition Start: 03/01/23 15:21 Freq: Status: Active Protocol: Document 03/01/23 12:05 DCW (Rec: 03/01/23 15:42 DCW [id number]) Current Condition History of Current Condition Onset Date 08/17/22 Current Complaints L shoulder pain & stiffness s/ p arthroscopy, biceps tenotomy decompression History of Current Condition Pt is a 67 year old male presenting more than six months s/p L shoulder arthroscopy, biceps tenotomy decompression. Pt reports he underwent post-op therapy, but was discharged at the end of November, was told that they had done all they could for him. At pt's follow-up with his surgeon in December, surgeon felt he required more PT, including US and cold laser, and referred him to this clinic. Has been very compliant with prior HEP, but has not made much progress, and is fairly significantly limited with ROM, due to both weakness and pain. Unable to perform any overhead activities, or reach back or laterally. Unable to reach up to the top shelf at home. Prior Treatments and Tests Prior PT from post-op through November Treatment Goals Patient/Caregiver Goals Improve shoulder ROM and pain levels PT-OP-C Subjective Start: 03/01/23 15:21 Freq: Status: Active Protocol: Document 05/27/23 10:15 DCW (Rec: 05/27/23 11:00 DCW [id number]) OP-PT Subjective Patient Comments Patient Comments It was hurting over the weekend, especially yesterday. I'm not sure why. PT-OP-E Functional Tests Start: 03/01/23 15:21 Freq: Status: Active Protocol: Document 03/01/23 12:05 DCW (Rec: 03/01/23 15:42 DCW [id number]) Functional Tests Apley's Scratch Test Action 1- Left Anterior opposite shoulder Action 1- Right Lateral opposite shoulder Action 2- Left C6 Action 2- Right T2 Action 3- Left L2 Action 3- Right T8 PT-OP-F Manual Assessment Start: 03/01/23 15:21 Freq: Status: Active Protocol: Document 03/01/23 12:05 DCW (Rec: 03/01/23 15:42 DCW [id number]) Manual Assessments Joint Mobility Assessment Joint Mobility Assessment Limited PROM in joint mobility with all directions PT-OP-K Range of Motion Start: 03/01/23 15:21 Freq: Status: Active Protocol: Document 05/23/23 10:15 DCW (Rec: 05/23/23 10:36 DCW [id number]) Shoulder Goniometric Range of Motion Shoulder Left Passive Shoulder ROM WFL No Testing Position Supine Flexion 145 Abduction 152 External Rotation at 0 degrees Abduction 60 Left Active Shoulder ROM WFL No Testing Position Standing Flexion 111 Abduction 85 External Rotation at 0 degrees Abduction 44 Internal Rotation Behind Back (text) L2 PT-OP-M Strength Start: 03/01/23 15:21 Freq: Status: Active Protocol: Document 03/01/23 12:05 DCW (Rec: 03/01/23 15:42 DCW [id number]) Shoulder Strength Shoulder Manual Muscle Testing Right Flexion 4+ Good+ Abduction (C5) 4+ Good+ External Rotation 4+ Good+ Internal Rotation 4+ Good+ Left Flexion 2 Poor Abduction (C5) 2+ Poor+ External Rotation 4 Good Internal Rotation 4+ Good+ Comments Increased pain with resisted flexion and external rotation PT-OP-Q Treatments Start: 03/01/23 15:21 Freq: Status: Active Protocol: Document 05/27/23 10:15 DCW (Rec: 05/27/23 11:00 DCW [id number]) Cardio Equipment Upper Body Ergometer (UBE) Duration (Minutes) 6 RPM 60 Seat Position 12 Height 5.5 Therapeutic Exercises Sitting Exercises IR/ER Sitting Exercise Name IR/ER in 90/90 /c weighted ball Side left Resistance 3.3 pound ball Standing Exercises Rows Standing Exercise Name Rows Side bilateral Resistance Blue t-band Extension Standing Exercise Name Shoulder Extension Side bilateral Resistance Blue t-band IR/ER Standing Exercise Name Internal/External Rotation Side bilateral Resistance Green t-band Flexion Standing Exercise Name Shoulder Flexion Side bilateral Resistance Green t-band Abduction Standing Exercise Name Shoulder Abduction Side bilateral Resistance Green t-band Other Exercises Resisted ambulation Other Exercise Name Resisted UE side-stepping Resistance Green Manual Therapy Treatment Joint Mobilizations Scapulothoracic Joint L scapulothoracic Direction Medial/Lateral Grade III Body Position Supine GH Joint L GH Direction Inferior Grade III Body Position Supine PT-OP-R Modalities Start: 03/01/23 15:52 Freq: Status: Active Protocol: Document 05/23/23 10:15 DCW (Rec: 05/23/23 11:02 DCW [id number]) Infrared Treatment Treatment Left Anterior Shoulder Duration (Minutes) 2 Dosage (Joules) 124 Body Position Supine Continuous/Pulsed Continuous Ultrasound Therapy Treatment Left Anterior Shoulder Treatment Duration (minutes) 8 Patient Position Supine Coupling Medium Ultrasound Gel Applicator Size (cm2) 5 Frequency Setting (mHz) 1 Mode Setting Continuous Duty Cycle 100% Intensity Setting (w/cm2) 1.0 PT-OP-T Assessment and Plan Start: 03/01/23 15:21 Freq: Status: Active Protocol: Document 05/27/23 10:15 DCW (Rec: 05/27/23 11:00 DCW [id number]) Physical Therapy Assessment Impairments Impairments Activity Tolerance,Functional Activities,Functional Mobility ,Pain,ROM,Soft Tissue Mobility ,Strength Goals Two Impairment Pt has difficulty participating in current HEP due to shoulder weakness Mcfp Goal (LTG) Pt to improve left shoulder strength to at least 3+/5 in order to improve ability to perform HEP, including overhead activities. LTG Duration 05/30/23 One Impairment Pt demonstrates significant limitations in L shoulder active ROM Computing Machine Operator Goal (LTG) Pt to improve AROM in both flexion and abduction to at least 120? in order to improve ability to participate in pediatric radiologist and placing things away on higher shelves. LTG Duration 05/30/23 Assessment Summary Assessment Focused more today on strengthening, pt tolerated well, noted many of the additional exercises are ones he performs at home from prior PT HEP. PROM continues to look good, AROM should benefit from increased strengthening Physical Therapy Plan Frequency and Duration Frequency of Treatment 2x/Week Plan of Care Start Date 03/01/23 Plan of Care End Date 05/30/23 Therapeutic Interventions Therapeutic Interventions Gait Training,Home Exercise Program,Joint Mobilizations, Manual Therapy,Neuromuscular Re-education,Patient/Caregiver Education,Self-Care/Home Management,Soft Tissue Mobilization,Therapeutic Activities,Therapeutic Exercises Modalities Cold Pack/Ice Massage,Electric Stimulation,Hot Packs, Infrared Therapy,Ultrasound Next Visit Focus/Plan Next Note Type Treatment Note Next Visit Plan US, laser, Stretching/ flexibility, strengthening
--- NOTE | 2023-05-30 10:56 | PT.OTN ---
Current Diagnoses Pain in left shoulder (05/30/23) Stiffness of left shoulder, not elsewhere classified (05/30/23) Other specified postprocedural states (05/30/23) Physical Therapy Treatment Note PT-OP-A Visit Information Start: 03/01/23 15:21 Freq: Status: Active Protocol: Document 05/30/23 10:15 DCW (Rec: 05/30/23 10:56 DCW [id number]) Out-Patient Physical Therapy Visit Information Visit Information Visit Type Treatment Note Visit Start Time 10:15 Visit Stop Time 11:00 Total Visit Minutes 45 Visit Number 9 Number of WATER VESSEL CAPTAIN Visits 0 Evaluation Information Evaluation Date 03/01/23 PT-OP-B Current Condition Start: 03/01/23 15:21 Freq: Status: Active Protocol: Document 03/01/23 12:05 DCW (Rec: 03/01/23 15:42 DCW [id number]) Current Condition History of Current Condition Onset Date 08/17/22 Current Complaints L shoulder pain & stiffness s/ p arthroscopy, biceps tenotomy decompression History of Current Condition Pt is a 67 year old male presenting more than six months s/p L shoulder arthroscopy, biceps tenotomy decompression. Pt reports he underwent post-op therapy, but was discharged at the end of November, was told that they had done all they could for him. At pt's follow-up with his surgeon in December, surgeon felt he required more PT, including US and cold laser, and referred him to this clinic. Has been very compliant with prior HEP, but has not made much progress, and is fairly significantly limited with ROM, due to both weakness and pain. Unable to perform any overhead activities, or reach back or laterally. Unable to reach up to the top shelf at home. Prior Treatments and Tests Prior PT from post-op through November Treatment Goals Patient/Caregiver Goals Improve shoulder ROM and pain levels PT-OP-C Subjective Start: 03/01/23 15:21 Freq: Status: Active Protocol: Document 05/30/23 10:15 DCW (Rec: 05/30/23 10:56 DCW [id number]) OP-PT Subjective Patient Comments Patient Comments I'm just not sure how much better it's getting. PT-OP-E Functional Tests Start: 03/01/23 15:21 Freq: Status: Active Protocol: Document 05/30/23 10:15 DCW (Rec: 05/30/23 10:26 DCW [id number]) Functional Tests Apley's Scratch Test Action 1- Left Lateral opposite shoulder Action 1- Right Lateral opposite shoulder Action 2- Left C7 Action 2- Right T2 Action 3- Left T12 Action 3- Right T8 PT-OP-F Manual Assessment Start: 03/01/23 15:21 Freq: Status: Active Protocol: Document 05/30/23 10:15 DCW (Rec: 05/30/23 10:26 DCW [id number]) Manual Assessments Joint Mobility Assessment Joint Mobility Assessment Limited PROM in joint mobility with all directions PT-OP-K Range of Motion Start: 03/01/23 15:21 Freq: Status: Active Protocol: Document 05/23/23 10:15 DCW (Rec: 05/23/23 10:36 DCW [id number]) Shoulder Goniometric Range of Motion Shoulder Left Passive Shoulder ROM WFL No Testing Position Supine Flexion 145 Abduction 152 External Rotation at 0 degrees Abduction 60 Left Active Shoulder ROM WFL No Testing Position Standing Flexion 111 Abduction 85 External Rotation at 0 degrees Abduction 44 Internal Rotation Behind Back (text) L2 PT-OP-M Strength Start: 03/01/23 15:21 Freq: Status: Active Protocol: Document 05/30/23 10:15 DCW (Rec: 05/30/23 10:26 DCW [id number]) Shoulder Strength Shoulder Manual Muscle Testing Right Flexion 4+ Good+ Abduction (C5) 4+ Good+ External Rotation 4+ Good+ Internal Rotation 4+ Good+ Left Flexion 2+ Poor+ Abduction (C5) 2+ Poor+ External Rotation 4 Good Internal Rotation 4+ Good+ Comments Increased pain with resisted flexion and external rotation PT-OP-Q Treatments Start: 03/01/23 15:21 Freq: Status: Active Protocol: Document 05/30/23 10:15 DCW (Rec: 05/30/23 10:56 DCW [id number]) Cardio Equipment Upper Body Ergometer (UBE) Duration (Minutes) 6 RPM 60 Seat Position 12 Height 6 Therapeutic Exercises Standing Exercises Chest press Standing Exercise Name Chest press Side bilateral Resistance 10# /c PVC Extension Standing Exercise Name Shoulder Extension Side bilateral Resistance Purple t-band Manual Therapy Treatment Joint Mobilizations Scapulothoracic Joint L scapulothoracic Direction Medial/Lateral Grade III Body Position Supine GH Joint L GH Direction Inferior Grade III Body Position Supine Other Other Manual Treatments Manual PROM Stretching PT-OP-R Modalities Start: 03/01/23 15:52 Freq: Status: Active Protocol: Document 05/23/23 10:15 DCW (Rec: 05/23/23 11:02 DCW [id number]) Infrared Treatment Treatment Left Anterior Shoulder Duration (Minutes) 2 Dosage (Joules) 124 Body Position Supine Continuous/Pulsed Continuous Ultrasound Therapy Treatment Left Anterior Shoulder Treatment Duration (minutes) 8 Patient Position Supine Coupling Medium Ultrasound Gel Applicator Size (cm2) 5 Frequency Setting (mHz) 1 Mode Setting Continuous Duty Cycle 100% Intensity Setting (w/cm2) 1.0 PT-OP-T Assessment and Plan Start: 03/01/23 15:21 Freq: Status: Active Protocol: Document 05/30/23 10:15 DCW (Rec: 05/30/23 10:56 DCW [id number]) Physical Therapy Assessment Impairments Impairments Activity Tolerance,Functional Activities,Functional Mobility ,Pain,ROM,Soft Tissue Mobility ,Strength Goals Two Impairment Pt has difficulty participating in current HEP due to shoulder weakness Repeat Photocomposing Machine Operator Goal (LTG) Pt to improve left shoulder strength to at least 3+/5 in order to improve ability to perform HEP, including overhead activities. LTG Duration 07/31/23 - improving One Impairment Pt demonstrates significant limitations in L shoulder active ROM Penitentiary Goal (LTG) Pt to improve AROM in both flexion and abduction to at least 120? in order to improve ability to participate in gameplay programmer and placing things away on higher shelves. LTG Duration 07/31/23 - improving Assessment Summary Assessment Pt making some decent progress overall, still fairly limited with ROM, though improving. May benefit from continued therapy focusing on more aggressive stretching/ROM. Doing well with strengthening at home. Physical Therapy Plan Frequency and Duration Frequency of Treatment 2x/Week Plan of Care Start Date 05/30/23 Plan of Care End Date 07/31/23 Therapeutic Interventions Therapeutic Interventions Gait Training,Home Exercise Program,Joint Mobilizations, Manual Therapy,Neuromuscular Re-education,Patient/Caregiver Education,Self-Care/Home Management,Soft Tissue Mobilization,Therapeutic Activities,Therapeutic Exercises Modalities Cold Pack/Ice Massage,Electric Stimulation,Hot Packs, Infrared Therapy,Ultrasound Next Visit Focus/Plan Next Note Type Treatment Note Next Visit Plan US, laser, Stretching/ flexibility, strengthening
--- NOTE | 2023-05-30 10:57 | PT.OPPOC ---
Physical, Occupational & Speech Therapy At [facility] Current Diagnoses Pain in left shoulder (05/30/23) Stiffness of left shoulder, not elsewhere classified (05/30/23) Other specified postprocedural states (05/30/23) Visit Care Team Role Provider Type Quincy Reagan DO Attending Provider Non-Staff Referring Provider Specialty: Orthopedic Surgery Address: [address] [place] [address], [id number] Email: Plan Of Care PT-OP-T Assessment and Plan Start: 03/01/23 15:21 Freq: Status: Active Protocol: Document 05/30/23 10:15 DCW (Rec: 05/30/23 10:56 DCW [id number]) Physical Therapy Assessment Impairments Impairments Activity Tolerance,Functional Activities,Functional Mobility ,Pain,ROM,Soft Tissue Mobility ,Strength Goals Two Impairment Pt has difficulty participating in current HEP due to shoulder weakness Import Export Coordinator Goal (LTG) Pt to improve left shoulder strength to at least 3+/5 in order to improve ability to perform HEP, including overhead activities. LTG Duration 07/31/23 - improving One Impairment Pt demonstrates significant limitations in L shoulder active ROM Shelter Goal (LTG) Pt to improve AROM in both flexion and abduction to at least 120? in order to improve ability to participate in internal control specialist and placing things away on higher shelves. LTG Duration 07/31/23 - improving Assessment Summary Assessment Pt making some decent progress overall, still fairly limited with ROM, though improving. May benefit from continued therapy focusing on more aggressive stretching/ROM. Doing well with strengthening at home. Physical Therapy Plan Frequency and Duration Frequency of Treatment 2x/Week Plan of Care Start Date 05/30/23 Plan of Care End Date 07/31/23 Therapeutic Interventions Therapeutic Interventions Gait Training,Home Exercise Program,Joint Mobilizations, Manual Therapy,Neuromuscular Re-education,Patient/Caregiver Education,Self-Care/Home Management,Soft Tissue Mobilization,Therapeutic Activities,Therapeutic Exercises Modalities Cold Pack/Ice Massage,Electric Stimulation,Hot Packs, Infrared Therapy,Ultrasound Next Visit Focus/Plan Next Note Type Treatment Note Next Visit Plan US, laser, Stretching/ flexibility, strengthening Plan of Care Dates Plan of Care Start Date 05/30/23 Plan of Care End Date 07/31/23 Electronically Signed by: Pierre Rosario, PT 05/30/23 3158 If you are in agreement with this Plan of Care, please return a signed and dated copy. I have reviewed this Plan of Care and certify that the skilled therapy services above are required to meet the patient?s needs. Physician Signature Date Printed Name and Credentials Clinical Instructor Signature Printed Name and Credentials
--- NOTE | 2023-06-03 10:57 | PT.OTN ---
Current Diagnoses Pain in left shoulder (06/03/23) Stiffness of left shoulder, not elsewhere classified (06/03/23) Other specified postprocedural states (06/03/23) Physical Therapy Treatment Note PT-OP-A Visit Information Start: 03/01/23 15:21 Freq: Status: Active Protocol: Document 06/03/23 10:15 DCW (Rec: 06/03/23 10:57 DCW [id number]) Out-Patient Physical Therapy Visit Information Visit Information Visit Type Treatment Note Visit Start Time 10:15 Visit Stop Time 11:00 Total Visit Minutes 45 Visit Number 9 Number of MARKET RESEARCH CONSULTANT Visits 0 Evaluation Information Evaluation Date 03/01/23 PT-OP-B Current Condition Start: 03/01/23 15:21 Freq: Status: Active Protocol: Document 03/01/23 12:05 DCW (Rec: 03/01/23 15:42 DCW [id number]) Current Condition History of Current Condition Onset Date 08/17/22 Current Complaints L shoulder pain & stiffness s/ p arthroscopy, biceps tenotomy decompression History of Current Condition Pt is a 67 year old male presenting more than six months s/p L shoulder arthroscopy, biceps tenotomy decompression. Pt reports he underwent post-op therapy, but was discharged at the end of November, was told that they had done all they could for him. At pt's follow-up with his surgeon in December, surgeon felt he required more PT, including US and cold laser, and referred him to this clinic. Has been very compliant with prior HEP, but has not made much progress, and is fairly significantly limited with ROM, due to both weakness and pain. Unable to perform any overhead activities, or reach back or laterally. Unable to reach up to the top shelf at home. Prior Treatments and Tests Prior PT from post-op through November Treatment Goals Patient/Caregiver Goals Improve shoulder ROM and pain levels PT-OP-C Subjective Start: 03/01/23 15:21 Freq: Status: Active Protocol: Document 06/03/23 10:15 DCW (Rec: 06/03/23 10:57 DCW [id number]) OP-PT Subjective Patient Comments Patient Comments Pt notes no sudden changed in shoulder mobility. PT-OP-E Functional Tests Start: 03/01/23 15:21 Freq: Status: Active Protocol: Document 05/30/23 10:15 DCW (Rec: 05/30/23 10:26 DCW [id number]) Functional Tests Apley's Scratch Test Action 1- Left Lateral opposite shoulder Action 1- Right Lateral opposite shoulder Action 2- Left C7 Action 2- Right T2 Action 3- Left T12 Action 3- Right T8 PT-OP-F Manual Assessment Start: 03/01/23 15:21 Freq: Status: Active Protocol: Document 05/30/23 10:15 DCW (Rec: 05/30/23 10:26 DCW [id number]) Manual Assessments Joint Mobility Assessment Joint Mobility Assessment Limited PROM in joint mobility with all directions PT-OP-K Range of Motion Start: 03/01/23 15:21 Freq: Status: Active Protocol: Document 05/23/23 10:15 DCW (Rec: 05/23/23 10:36 DCW [id number]) Shoulder Goniometric Range of Motion Shoulder Left Passive Shoulder ROM WFL No Testing Position Supine Flexion 145 Abduction 152 External Rotation at 0 degrees Abduction 60 Left Active Shoulder ROM WFL No Testing Position Standing Flexion 111 Abduction 85 External Rotation at 0 degrees Abduction 44 Internal Rotation Behind Back (text) L2 PT-OP-M Strength Start: 03/01/23 15:21 Freq: Status: Active Protocol: Document 05/30/23 10:15 DCW (Rec: 05/30/23 10:26 DCW [id number]) Shoulder Strength Shoulder Manual Muscle Testing Right Flexion 4+ Good+ Abduction (C5) 4+ Good+ External Rotation 4+ Good+ Internal Rotation 4+ Good+ Left Flexion 2+ Poor+ Abduction (C5) 2+ Poor+ External Rotation 4 Good Internal Rotation 4+ Good+ Comments Increased pain with resisted flexion and external rotation PT-OP-Q Treatments Start: 03/01/23 15:21 Freq: Status: Active Protocol: Document 06/03/23 10:15 DCW (Rec: 06/03/23 10:57 DCW [id number]) Cardio Equipment Upper Body Ergometer (UBE) Duration (Minutes) 6 RPM 60 Seat Position 12 Height 6 Gym Equipment Cable Column (Body Solid) Lat Pull Down Details End-range stretch at end of exercise Resistance 50# Therapeutic Ball Stabilization Exercise Details Stabilization vs perturbation in 90 deg flexion Ball Size/Color Blue - 45 cm Body Position Supine Therapeutic Exercises Supine Exercises ER/IR Supine Exercise Name IR/ER in 90/90 /c weighted ball Side left Resistance 4.4# ball Other Exercises Body Blade Other Exercise Name Flexion, Abduction Side left Resistance Yellow BB Manual Therapy Treatment Joint Mobilizations Scapulothoracic Joint L scapulothoracic Direction Medial/Lateral Grade III Body Position Supine GH Joint L GH Direction Inferior Grade III Body Position Supine Other Other Manual Treatments Manual PROM Stretching PT-OP-R Modalities Start: 03/01/23 15:52 Freq: Status: Active Protocol: Document 05/23/23 10:15 DCW (Rec: 05/23/23 11:02 DCW [id number]) Infrared Treatment Treatment Left Anterior Shoulder Duration (Minutes) 2 Dosage (Joules) 124 Body Position Supine Continuous/Pulsed Continuous Ultrasound Therapy Treatment Left Anterior Shoulder Treatment Duration (minutes) 8 Patient Position Supine Coupling Medium Ultrasound Gel Applicator Size (cm2) 5 Frequency Setting (mHz) 1 Mode Setting Continuous Duty Cycle 100% Intensity Setting (w/cm2) 1.0 PT-OP-T Assessment and Plan Start: 03/01/23 15:21 Freq: Status: Active Protocol: Document 06/03/23 10:15 DCW (Rec: 06/03/23 10:57 DCW [id number]) Physical Therapy Assessment Impairments Impairments Activity Tolerance,Functional Activities,Functional Mobility ,Pain,ROM,Soft Tissue Mobility ,Strength Goals Two Impairment Pt has difficulty participating in current HEP due to shoulder weakness Mcfp Goal (LTG) Pt to improve left shoulder strength to at least 3+/5 in order to improve ability to perform HEP, including overhead activities. LTG Duration 07/31/23 - improving One Impairment Pt demonstrates significant limitations in L shoulder active ROM Mcfp Goal (LTG) Pt to improve AROM in both flexion and abduction to at least 120? in order to improve ability to participate in explosives truck driver and placing things away on higher shelves. LTG Duration 07/31/23 - improving Assessment Summary Assessment Pt tolerated increased end- range stretching today, did note some discomfort when using lat pull-down for stretch, but overall passive mobility is slowly improving. Physical Therapy Plan Frequency and Duration Frequency of Treatment 2x/Week Plan of Care Start Date 05/30/23 Plan of Care End Date 07/31/23 Therapeutic Interventions Therapeutic Interventions Gait Training,Home Exercise Program,Joint Mobilizations, Manual Therapy,Neuromuscular Re-education,Patient/Caregiver Education,Self-Care/Home Management,Soft Tissue Mobilization,Therapeutic Activities,Therapeutic Exercises Modalities Cold Pack/Ice Massage,Electric Stimulation,Hot Packs, Infrared Therapy,Ultrasound Next Visit Focus/Plan Next Note Type Treatment Note Next Visit Plan US, laser, Stretching/ flexibility, strengthening
--- NOTE | 2023-06-06 11:00 | PT.OTN ---
Current Diagnoses Pain in left shoulder (06/06/23) Stiffness of left shoulder, not elsewhere classified (06/06/23) Other specified postprocedural states (06/06/23) Physical Therapy Treatment Note PT-OP-A Visit Information Start: 03/01/23 15:21 Freq: Status: Active Protocol: Document 06/06/23 10:15 DCW (Rec: 06/06/23 11:00 DCW [id number]) Out-Patient Physical Therapy Visit Information Visit Information Visit Type Treatment Note Visit Start Time 10:15 Visit Stop Time 11:00 Total Visit Minutes 45 Visit Number 10 Number of THERAPY ASSISTANT Visits 0 Evaluation Information Evaluation Date 03/01/23 PT-OP-B Current Condition Start: 03/01/23 15:21 Freq: Status: Active Protocol: Document 03/01/23 12:05 DCW (Rec: 03/01/23 15:42 DCW [id number]) Current Condition History of Current Condition Onset Date 08/17/22 Current Complaints L shoulder pain & stiffness s/ p arthroscopy, biceps tenotomy decompression History of Current Condition Pt is a 67 year old male presenting more than six months s/p L shoulder arthroscopy, biceps tenotomy decompression. Pt reports he underwent post-op therapy, but was discharged at the end of November, was told that they had done all they could for him. At pt's follow-up with his surgeon in December, surgeon felt he required more PT, including US and cold laser, and referred him to this clinic. Has been very compliant with prior HEP, but has not made much progress, and is fairly significantly limited with ROM, due to both weakness and pain. Unable to perform any overhead activities, or reach back or laterally. Unable to reach up to the top shelf at home. Prior Treatments and Tests Prior PT from post-op through November Treatment Goals Patient/Caregiver Goals Improve shoulder ROM and pain levels PT-OP-C Subjective Start: 03/01/23 15:21 Freq: Status: Active Protocol: Document 06/06/23 10:15 DCW (Rec: 06/06/23 11:00 DCW [id number]) OP-PT Subjective Patient Comments Patient Comments Pt notes his back has been hurting the past few days. PT-OP-E Functional Tests Start: 03/01/23 15:21 Freq: Status: Active Protocol: Document 05/30/23 10:15 DCW (Rec: 05/30/23 10:26 DCW [id number]) Functional Tests Apley's Scratch Test Action 1- Left Lateral opposite shoulder Action 1- Right Lateral opposite shoulder Action 2- Left C7 Action 2- Right T2 Action 3- Left T12 Action 3- Right T8 PT-OP-F Manual Assessment Start: 03/01/23 15:21 Freq: Status: Active Protocol: Document 05/30/23 10:15 DCW (Rec: 05/30/23 10:26 DCW [id number]) Manual Assessments Joint Mobility Assessment Joint Mobility Assessment Limited PROM in joint mobility with all directions PT-OP-K Range of Motion Start: 03/01/23 15:21 Freq: Status: Active Protocol: Document 05/23/23 10:15 DCW (Rec: 05/23/23 10:36 DCW [id number]) Shoulder Goniometric Range of Motion Shoulder Left Passive Shoulder ROM WFL No Testing Position Supine Flexion 145 Abduction 152 External Rotation at 0 degrees Abduction 60 Left Active Shoulder ROM WFL No Testing Position Standing Flexion 111 Abduction 85 External Rotation at 0 degrees Abduction 44 Internal Rotation Behind Back (text) L2 PT-OP-M Strength Start: 03/01/23 15:21 Freq: Status: Active Protocol: Document 05/30/23 10:15 DCW (Rec: 05/30/23 10:26 DCW [id number]) Shoulder Strength Shoulder Manual Muscle Testing Right Flexion 4+ Good+ Abduction (C5) 4+ Good+ External Rotation 4+ Good+ Internal Rotation 4+ Good+ Left Flexion 2+ Poor+ Abduction (C5) 2+ Poor+ External Rotation 4 Good Internal Rotation 4+ Good+ Comments Increased pain with resisted flexion and external rotation PT-OP-Q Treatments Start: 03/01/23 15:21 Freq: Status: Active Protocol: Document 06/06/23 10:15 DCW (Rec: 06/06/23 11:00 DCW [id number]) Cardio Equipment Upper Body Ergometer (UBE) Duration (Minutes) 6 RPM 60 Seat Position 12 Height 6 Gym Equipment Cable Column (Body Solid) Rows Resistance 40# Lat Pull Down Details End-range stretch at end of exercise Resistance 50# Therapeutic Ball Stabilization Exercise Details Stabilization vs perturbation in 90 deg flexion Ball Size/Color Blue - 45 cm Body Position Supine Therapeutic Exercises Supine Exercises ER/IR Supine Exercise Name IR/ER in 90/90 /c weighted ball Side left Resistance 4.4# ball Other Exercises Body Blade Other Exercise Name Flexion, Abduction Side left Resistance Yellow BB Wall Push-ups Other Exercise Name Inclined push-ups @ plinth Manual Therapy Treatment Joint Mobilizations Scapulothoracic Joint L scapulothoracic Direction Medial/Lateral Grade III Body Position Supine GH Joint L GH Direction Inferior Grade III Body Position Supine PT-OP-R Modalities Start: 03/01/23 15:52 Freq: Status: Active Protocol: Document 05/23/23 10:15 DCW (Rec: 05/23/23 11:02 DCW [id number]) Infrared Treatment Treatment Left Anterior Shoulder Duration (Minutes) 2 Dosage (Joules) 124 Body Position Supine Continuous/Pulsed Continuous Ultrasound Therapy Treatment Left Anterior Shoulder Treatment Duration (minutes) 8 Patient Position Supine Coupling Medium Ultrasound Gel Applicator Size (cm2) 5 Frequency Setting (mHz) 1 Mode Setting Continuous Duty Cycle 100% Intensity Setting (w/cm2) 1.0 PT-OP-T Assessment and Plan Start: 03/01/23 15:21 Freq: Status: Active Protocol: Document 06/06/23 10:15 DCW (Rec: 06/06/23 11:00 DCW [id number]) Physical Therapy Assessment Impairments Impairments Activity Tolerance,Functional Activities,Functional Mobility ,Pain,ROM,Soft Tissue Mobility ,Strength Goals Two Impairment Pt has difficulty participating in current HEP due to shoulder weakness Slate Roofer Goal (LTG) Pt to improve left shoulder strength to at least 3+/5 in order to improve ability to perform HEP, including overhead activities. LTG Duration 07/31/23 - improving One Impairment Pt demonstrates significant limitations in L shoulder active ROM Detention Goal (LTG) Pt to improve AROM in both flexion and abduction to at least 120? in order to improve ability to participate in cyber operator and placing things away on higher shelves. LTG Duration 07/31/23 - improving Assessment Summary Assessment Pt showing increased AROM, flexion measured at 126? and abduction to 106?. Continue to focus more on strengthening and shoulder stabilization Physical Therapy Plan Frequency and Duration Frequency of Treatment 2x/Week Plan of Care Start Date 05/30/23 Plan of Care End Date 07/31/23 Therapeutic Interventions Therapeutic Interventions Gait Training,Home Exercise Program,Joint Mobilizations, Manual Therapy,Neuromuscular Re-education,Patient/Caregiver Education,Self-Care/Home Management,Soft Tissue Mobilization,Therapeutic Activities,Therapeutic Exercises Modalities Cold Pack/Ice Massage,Electric Stimulation,Hot Packs, Infrared Therapy,Ultrasound Next Visit Focus/Plan Next Note Type Treatment Note Next Visit Plan US, laser, Stretching/ flexibility, strengthening
--- NOTE | 2023-06-10 10:57 | PT.OTN ---
Current Diagnoses Pain in left shoulder (06/10/23) Stiffness of left shoulder, not elsewhere classified (06/10/23) Other specified postprocedural states (06/10/23) Physical Therapy Treatment Note PT-OP-A Visit Information Start: 03/01/23 15:21 Freq: Status: Active Protocol: Document 06/10/23 10:15 DCW (Rec: 06/10/23 10:57 DCW [id number]) Out-Patient Physical Therapy Visit Information Visit Information Visit Type Treatment Note Visit Start Time 10:15 Visit Stop Time 11:00 Total Visit Minutes 45 Visit Number 11 Number of FOUNDRY ENGINEER Visits 0 Evaluation Information Evaluation Date 03/01/23 PT-OP-B Current Condition Start: 03/01/23 15:21 Freq: Status: Active Protocol: Document 03/01/23 12:05 DCW (Rec: 03/01/23 15:42 DCW [id number]) Current Condition History of Current Condition Onset Date 08/17/22 Current Complaints L shoulder pain & stiffness s/ p arthroscopy, biceps tenotomy decompression History of Current Condition Pt is a 67 year old male presenting more than six months s/p L shoulder arthroscopy, biceps tenotomy decompression. Pt reports he underwent post-op therapy, but was discharged at the end of November, was told that they had done all they could for him. At pt's follow-up with his surgeon in December, surgeon felt he required more PT, including US and cold laser, and referred him to this clinic. Has been very compliant with prior HEP, but has not made much progress, and is fairly significantly limited with ROM, due to both weakness and pain. Unable to perform any overhead activities, or reach back or laterally. Unable to reach up to the top shelf at home. Prior Treatments and Tests Prior PT from post-op through November Treatment Goals Patient/Caregiver Goals Improve shoulder ROM and pain levels PT-OP-C Subjective Start: 03/01/23 15:21 Freq: Status: Active Protocol: Document 06/10/23 10:15 DCW (Rec: 06/10/23 10:57 DCW [id number]) OP-PT Subjective Patient Comments Patient Comments Not too bad today, sometimes in the morning it really hurts until I get moving. PT-OP-E Functional Tests Start: 03/01/23 15:21 Freq: Status: Active Protocol: Document 05/30/23 10:15 DCW (Rec: 05/30/23 10:26 DCW [id number]) Functional Tests Apley's Scratch Test Action 1- Left Lateral opposite shoulder Action 1- Right Lateral opposite shoulder Action 2- Left C7 Action 2- Right T2 Action 3- Left T12 Action 3- Right T8 PT-OP-F Manual Assessment Start: 03/01/23 15:21 Freq: Status: Active Protocol: Document 05/30/23 10:15 DCW (Rec: 05/30/23 10:26 DCW [id number]) Manual Assessments Joint Mobility Assessment Joint Mobility Assessment Limited PROM in joint mobility with all directions PT-OP-K Range of Motion Start: 03/01/23 15:21 Freq: Status: Active Protocol: Document 05/23/23 10:15 DCW (Rec: 05/23/23 10:36 DCW [id number]) Shoulder Goniometric Range of Motion Shoulder Left Passive Shoulder ROM WFL No Testing Position Supine Flexion 145 Abduction 152 External Rotation at 0 degrees Abduction 60 Left Active Shoulder ROM WFL No Testing Position Standing Flexion 111 Abduction 85 External Rotation at 0 degrees Abduction 44 Internal Rotation Behind Back (text) L2 PT-OP-M Strength Start: 03/01/23 15:21 Freq: Status: Active Protocol: Document 05/30/23 10:15 DCW (Rec: 05/30/23 10:26 DCW [id number]) Shoulder Strength Shoulder Manual Muscle Testing Right Flexion 4+ Good+ Abduction (C5) 4+ Good+ External Rotation 4+ Good+ Internal Rotation 4+ Good+ Left Flexion 2+ Poor+ Abduction (C5) 2+ Poor+ External Rotation 4 Good Internal Rotation 4+ Good+ Comments Increased pain with resisted flexion and external rotation PT-OP-Q Treatments Start: 03/01/23 15:21 Freq: Status: Active Protocol: Document 06/10/23 10:15 DCW (Rec: 06/10/23 10:57 DCW [id number]) Cardio Equipment Upper Body Ergometer (UBE) Duration (Minutes) 6 RPM 60 Seat Position 12 Height 6 Gym Equipment Cable Column (Body Solid) Rows Resistance 40# Lat Pull Down Details End-range stretch at end of exercise Resistance 50# Therapeutic Exercises Standing Exercises Chest press Standing Exercise Name Chest press Side bilateral Resistance 15# /c PVC Other Exercises Body Blade Other Exercise Name Flexion, Abduction Side left Resistance Medium Black BB Wall Push-ups Other Exercise Name Inclined push-ups @ plinth Resisted ambulation Other Exercise Name Resisted UE side-stepping Resistance Green Manual Therapy Treatment Joint Mobilizations Scapulothoracic Joint L scapulothoracic Direction Medial/Lateral Grade III Body Position Supine GH Joint L GH Direction Inferior Grade III Body Position Supine Other Other Manual Treatments Manual PROM Stretching PT-OP-R Modalities Start: 03/01/23 15:52 Freq: Status: Active Protocol: Document 05/23/23 10:15 DCW (Rec: 05/23/23 11:02 DCW [id number]) Infrared Treatment Treatment Left Anterior Shoulder Duration (Minutes) 2 Dosage (Joules) 124 Body Position Supine Continuous/Pulsed Continuous Ultrasound Therapy Treatment Left Anterior Shoulder Treatment Duration (minutes) 8 Patient Position Supine Coupling Medium Ultrasound Gel Applicator Size (cm2) 5 Frequency Setting (mHz) 1 Mode Setting Continuous Duty Cycle 100% Intensity Setting (w/cm2) 1.0 PT-OP-T Assessment and Plan Start: 03/01/23 15:21 Freq: Status: Active Protocol: Document 06/10/23 10:15 DCW (Rec: 06/10/23 10:57 DCW [id number]) Physical Therapy Assessment Impairments Impairments Activity Tolerance,Functional Activities,Functional Mobility ,Pain,ROM,Soft Tissue Mobility ,Strength Goals Two Impairment Pt has difficulty participating in current HEP due to shoulder weakness Mcc Goal (LTG) Pt to improve left shoulder strength to at least 3+/5 in order to improve ability to perform HEP, including overhead activities. LTG Duration 07/31/23 - improving One Impairment Pt demonstrates significant limitations in L shoulder active ROM Client Account Manager Goal (LTG) Pt to improve AROM in both flexion and abduction to at least 120? 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 LTG Duration 07/31/23 - improving Assessment Summary Assessment Pt continues to show slow progress with active ROM, improving with UE strength, tolerating more reps at higher weights. Physical Therapy Plan Frequency and Duration Frequency of Treatment 2x/Week Plan of Care Start Date 05/30/23 Plan of Care End Date 07/31/23 Therapeutic Interventions Therapeutic Interventions Gait Training,Home Exercise Program,Joint Mobilizations, Manual Therapy,Neuromuscular Re-education,Patient/Caregiver Education,Self-Care/Home Management,Soft Tissue Mobilization,Therapeutic Activities,Therapeutic Exercises Modalities Cold Pack/Ice Massage,Electric Stimulation,Hot Packs, Infrared Therapy,Ultrasound Next Visit Focus/Plan Next Note Type Treatment Note Next Visit Plan US, laser, Stretching/ flexibility, strengthening
--- NOTE | 2023-06-13 15:30 | PT.OTN ---
Current Diagnoses Pain in left shoulder (06/13/23) Stiffness of left shoulder, not elsewhere classified (06/13/23) Other specified postprocedural states (06/13/23) Physical Therapy Treatment Note PT-OP-A Visit Information Start: 03/01/23 15:21 Freq: Status: Active Protocol: Document 06/13/23 14:45 DCW (Rec: 06/13/23 15:30 DCW [id number]) Out-Patient Physical Therapy Visit Information Visit Information Visit Type Treatment Note Visit Start Time 14:45 Visit Stop Time 15:30 Total Visit Minutes 45 Visit Number 12 Number of CALL CENTER RECEPTIONIST Visits 0 Evaluation Information Evaluation Date 03/01/23 PT-OP-B Current Condition Start: 03/01/23 15:21 Freq: Status: Active Protocol: Document 03/01/23 12:05 DCW (Rec: 03/01/23 15:42 DCW [id number]) Current Condition History of Current Condition Onset Date 08/17/22 Current Complaints L shoulder pain & stiffness s/ p arthroscopy, biceps tenotomy decompression History of Current Condition Pt is a 67 year old male presenting more than six months s/p L shoulder arthroscopy, biceps tenotomy decompression. Pt reports he underwent post-op therapy, but was discharged at the end of November, was told that they had done all they could for him. At pt's follow-up with his surgeon in December, surgeon felt he required more PT, including US and cold laser, and referred him to this clinic. Has been very compliant with prior HEP, but has not made much progress, and is fairly significantly limited with ROM, due to both weakness and pain. Unable to perform any overhead activities, or reach back or laterally. Unable to reach up to the top shelf at home. Prior Treatments and Tests Prior PT from post-op through November Treatment Goals Patient/Caregiver Goals Improve shoulder ROM and pain levels PT-OP-C Subjective Start: 03/01/23 15:21 Freq: Status: Active Protocol: Document 06/13/23 14:45 DCW (Rec: 06/13/23 15:30 DCW [id number]) OP-PT Subjective Patient Comments Patient Comments After Saturday's session, my shoulder hurt into Saturday. I don't know if it was something we did, or the weather, but it kept me awake. PT-OP-E Functional Tests Start: 03/01/23 15:21 Freq: Status: Active Protocol: Document 05/30/23 10:15 DCW (Rec: 05/30/23 10:26 DCW [id number]) Functional Tests Apley's Scratch Test Action 1- Left Lateral opposite shoulder Action 1- Right Lateral opposite shoulder Action 2- Left C7 Action 2- Right T2 Action 3- Left T12 Action 3- Right T8 PT-OP-F Manual Assessment Start: 03/01/23 15:21 Freq: Status: Active Protocol: Document 05/30/23 10:15 DCW (Rec: 05/30/23 10:26 DCW [id number]) Manual Assessments Joint Mobility Assessment Joint Mobility Assessment Limited PROM in joint mobility with all directions PT-OP-K Range of Motion Start: 03/01/23 15:21 Freq: Status: Active Protocol: Document 05/23/23 10:15 DCW (Rec: 05/23/23 10:36 DCW [id number]) Shoulder Goniometric Range of Motion Shoulder Left Passive Shoulder ROM WFL No Testing Position Supine Flexion 145 Abduction 152 External Rotation at 0 degrees Abduction 60 Left Active Shoulder ROM WFL No Testing Position Standing Flexion 111 Abduction 85 External Rotation at 0 degrees Abduction 44 Internal Rotation Behind Back (text) L2 PT-OP-M Strength Start: 03/01/23 15:21 Freq: Status: Active Protocol: Document 05/30/23 10:15 DCW (Rec: 05/30/23 10:26 DCW [id number]) Shoulder Strength Shoulder Manual Muscle Testing Right Flexion 4+ Good+ Abduction (C5) 4+ Good+ External Rotation 4+ Good+ Internal Rotation 4+ Good+ Left Flexion 2+ Poor+ Abduction (C5) 2+ Poor+ External Rotation 4 Good Internal Rotation 4+ Good+ Comments Increased pain with resisted flexion and external rotation PT-OP-Q Treatments Start: 03/01/23 15:21 Freq: Status: Active Protocol: Document 06/13/23 14:45 DCW (Rec: 06/13/23 15:30 DCW [id number]) Cardio Equipment Upper Body Ergometer (UBE) Duration (Minutes) 6 RPM 60 Seat Position 10 Height 6 Gym Equipment Cable Column (Body Solid) Rows Resistance 40# Lat Pull Down Details End-range stretch at end of exercise Resistance 50# Shuttle Rebound Ball toss Exercise Details L ball toss Comments weighted 1000 g red ball Therapeutic Ball Stabilization Exercise Details Stabilization vs perturbation in 90 deg flexion Ball Size/Color Blue - 45 cm Body Position Supine Therapeutic Exercises Standing Exercises Chop/Lift Standing Exercise Name Chop/Lift Resistance Green Chest press Standing Exercise Name Chest press Side bilateral Resistance 7# each Flexion Standing Exercise Name Shoulder Flexion Side bilateral Resistance 7# Abduction Standing Exercise Name Shoulder Abduction Side bilateral Resistance 7# Other Exercises Resisted ambulation Other Exercise Name Resisted UE side-stepping Resistance Green Manual Therapy Treatment Joint Mobilizations Scapulothoracic Joint L scapulothoracic Direction Medial/Lateral Grade III Body Position Supine GH Joint L GH Direction Inferior Grade III Body Position Supine Other Other Manual Treatments Manual PROM Stretching PT-OP-R Modalities Start: 03/01/23 15:52 Freq: Status: Active Protocol: Document 05/23/23 10:15 DCW (Rec: 05/23/23 11:02 DCW [id number]) Infrared Treatment Treatment Left Anterior Shoulder Duration (Minutes) 2 Dosage (Joules) 124 Body Position Supine Continuous/Pulsed Continuous Ultrasound Therapy Treatment Left Anterior Shoulder Treatment Duration (minutes) 8 Patient Position Supine Coupling Medium Ultrasound Gel Applicator Size (cm2) 5 Frequency Setting (mHz) 1 Mode Setting Continuous Duty Cycle 100% Intensity Setting (w/cm2) 1.0 PT-OP-T Assessment and Plan Start: 03/01/23 15:21 Freq: Status: Active Protocol: Document 06/13/23 14:45 DCW (Rec: 06/13/23 15:30 DCW [id number]) Physical Therapy Assessment Impairments Impairments Activity Tolerance,Functional Activities,Functional Mobility ,Pain,ROM,Soft Tissue Mobility ,Strength Goals Two Impairment Pt has difficulty participating in current HEP due to shoulder weakness Correction Goal (LTG) Pt to improve left shoulder strength to at least 3+/5 in order to improve ability to perform HEP, including overhead activities. LTG Duration 07/31/23 - improving One Impairment Pt demonstrates significant limitations in L shoulder active ROM Technical Account Manager Goal (LTG) Pt to improve AROM in both flexion and abduction to at least 120? in order to improve ability to participate in approver and placing things away on higher shelves. LTG Duration 07/31/23 - improving Assessment Summary Assessment Pt doing well with increasing strengthening activities, showing good follow-through with HEP. Continue to focus on active ROM and strengthening. Physical Therapy Plan Frequency and Duration Frequency of Treatment 2x/Week Plan of Care Start Date 05/30/23 Plan of Care End Date 07/31/23 Therapeutic Interventions Therapeutic Interventions Gait Training,Home Exercise Program,Joint Mobilizations, Manual Therapy,Neuromuscular Re-education,Patient/Caregiver Education,Self-Care/Home Management,Soft Tissue Mobilization,Therapeutic Activities,Therapeutic Exercises Modalities Cold Pack/Ice Massage,Electric Stimulation,Hot Packs, Infrared Therapy,Ultrasound Next Visit Focus/Plan Next Note Type Treatment Note Next Visit Plan US, laser, Stretching/ flexibility, strengthening
--- NOTE | 2023-06-18 08:15 | PT.OTN ---
Current Diagnoses Pain in left shoulder (06/18/23) Stiffness of left shoulder, not elsewhere classified (06/18/23) Other specified postprocedural states (06/18/23) Physical Therapy Treatment Note PT-OP-A Visit Information Start: 03/01/23 15:21 Freq: Status: Active Protocol: Document 06/18/23 07:30 SP (Rec: 06/18/23 08:19 SP [id number]) Out-Patient Physical Therapy Visit Information Visit Information Visit Type Treatment Note Visit Start Time 07:30 Visit Stop Time 08:15 Total Visit Minutes 13 Number of CANE FLUME CHUTE OPERATOR Visits 1 Evaluation Information Evaluation Date 03/01/23 PT-OP-B Current Condition Start: 03/01/23 15:21 Freq: Status: Active Protocol: Document 03/01/23 12:05 DCW (Rec: 03/01/23 15:42 DCW [id number]) Current Condition History of Current Condition Onset Date 08/17/22 Current Complaints L shoulder pain & stiffness s/ p arthroscopy, biceps tenotomy decompression History of Current Condition Pt is a 67 year old male presenting more than six months s/p L shoulder arthroscopy, biceps tenotomy decompression. Pt reports he underwent post-op therapy, but was discharged at the end of November, was told that they had done all they could for him. At pt's follow-up with his surgeon in December, surgeon felt he required more PT, including US and cold laser, and referred him to this clinic. Has been very compliant with prior HEP, but has not made much progress, and is fairly significantly limited with ROM, due to both weakness and pain. Unable to perform any overhead activities, or reach back or laterally. Unable to reach up to the top shelf at home. 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 PT-OP-E Functional Tests Start: 03/01/23 15:21 Freq: Status: Active Protocol: Document 05/30/23 10:15 DCW (Rec: 05/30/23 10:26 DCW [id number]) Functional Tests Apley's Scratch Test Action 1- Left Lateral opposite shoulder Action 1- Right Lateral opposite shoulder Action 2- Left C7 Action 2- Right T2 Action 3- Left T12 Action 3- Right T8 PT-OP-F Manual Assessment Start: 03/01/23 15:21 Freq: Status: Active Protocol: Document 05/30/23 10:15 DCW (Rec: 05/30/23 10:26 DCW [id number]) Manual Assessments Joint Mobility Assessment Joint Mobility Assessment Limited PROM in joint mobility with all directions PT-OP-K Range of Motion Start: 03/01/23 15:21 Freq: Status: Active Protocol: Document 06/18/23 07:30 SP (Rec: 06/18/23 08:19 SP [id number]) Shoulder Goniometric Range of Motion Shoulder Left Active Shoulder ROM WFL No Testing Position Standing Flexion 111 Abduction 92 External Rotation at 0 degrees Abduction 68 Internal Rotation Behind Back (text) L2 Comments L shld AROM 06/18/23: FF same 111 deg ABD gained 7 deg (92 deg) ER gained 24 deg (68 de IR (behind back) same L2 PT-OP-M Strength Start: 03/01/23 15:21 Freq: Status: Active Protocol: Document 05/30/23 10:15 DCW (Rec: 05/30/23 10:26 DCW [id number]) Shoulder Strength Shoulder Manual Muscle Testing Right Flexion 4+ Good+ Abduction (C5) 4+ Good+ External Rotation 4+ Good+ Internal Rotation 4+ Good+ Left Flexion 2+ Poor+ Abduction (C5) 2+ Poor+ External Rotation 4 Good Internal Rotation 4+ Good+ Comments Increased pain with resisted flexion and external rotation PT-OP-Q Treatments Start: 03/01/23 15:21 Freq: Status: Active Protocol: Document 06/18/23 07:30 SP (Rec: 06/18/23 08:19 SP [id number]) Gym Equipment Cable Column (Body Solid) Rows Resistance 40# Reps/Time 20 reps (states performed bent over rows 15# at home) Lat Pull Down Details End-range stretch OH at end of exercise Resistance 50# Reps/Time 20 reps- cued scap squeeze throughout range- Therapeutic Exercises Supine Exercises Flexion Supine Exercise Name 1. Duran Flexion /c PVC 2. SIngle Side bilateral Resistance B 10# leg wt, Single 5# x10, 7# x5 reps Equipment Used pillow under head Comments cued knees bent, TA/ LS neutral, slower pacing pause end range stretch Sidelying Exercises Abduction Sidelying Exercise Name Shoulder Abduction Side left Resistance 5# DB Reps/Minutes x8 reps Comments tactile cues stacked on side for better form Sitting Exercises eccentric FF Sitting Exercise Name initiated in PT: AAROM Resistance TB #3 Reps/Minutes 5 reps Comments approx 155 deg Standing Exercises IR stretch Standing Exercise Name reviewed self Side left Equipment Used towel (uses norberto at home) Reps/Minutes 10 SH x 4 reps Comments provided mirror for self level shld feedback Other Exercises bent over rows Other Exercise Name review self HEP Side left Resistance DB 25#> 15# Equipment Used 1 knee and RUE on bench Reps/Minutes 10 reps Comments good form Wall Push-ups Other Exercise Name Inclined push-ups @ plinth Resistance off plinth x8 reps, body solid bench 3 reps Comments cued head neutral PT-OP-R Modalities Start: 03/01/23 15:52 Freq: Status: Active Protocol: Document 05/23/23 10:15 DCW (Rec: 05/23/23 11:02 DCW [id number]) Infrared Treatment Treatment Left Anterior Shoulder Duration (Minutes) 2 Dosage (Joules) 124 Body Position Supine Continuous/Pulsed Continuous Ultrasound Therapy Treatment Left Anterior Shoulder Treatment Duration (minutes) 8 Patient Position Supine Coupling Medium Ultrasound Gel Applicator Size (cm2) 5 Frequency Setting (mHz) 1 Mode Setting Continuous Duty Cycle 100% Intensity Setting (w/cm2) 1.0 PT-OP-T Assessment and Plan Start: 03/01/23 15:21 Freq: Status: Active Protocol: Document 06/18/23 07:30 SP (Rec: 06/18/23 08:19 SP [id number]) Physical Therapy Assessment Goals Two Impairment Pt has difficulty participating in current HEP due to shoulder weakness Long-Term Goal (LTG) Pt to improve left shoulder strength to at least 3+/5 in order to improve ability to perform HEP, including overhead activities. LTG Duration 07/31/23 - improving One Impairment Pt demonstrates significant limitations in L shoulder active ROM Long-Term Goal (LTG) Pt to improve AROM in both flexion and abduction to at least 120? in order to improve ability to participate in hha and placing things away on higher shelves. 06/18/23: improving: FF 111 deg , ABD 92 deg, ER 68 deg, IR behind back L2. LTG Duration 07/31/23 - improving Progress Towards Goals Progress Comments L shld AROM 06/18/23 standing: FF same 111 deg ABD gained 7 deg (92 deg) ER gained 24 deg (68 de IR (behind back) same L2 Assessment Summary Assessment Pt continues to have some discomfort lateral GH jt/ distal deltoid area with end range OH and mid range eccentric flexion. Improves with cues for scapular and head position corrections, adjustments in resistance for tolerance educated at home using dumbells. Physical Therapy Plan Frequency and Duration Frequency of Treatment 2x/Week Plan of Care Start Date 05/30/23 Plan of Care End Date 07/31/23 Therapeutic Interventions Therapeutic Interventions Gait Training,Home Exercise Program,Joint Mobilizations, Manual Therapy,Neuromuscular Re-education,Patient/Caregiver Education,Self-Care/Home Management,Soft Tissue Mobilization,Therapeutic Activities,Therapeutic Exercises Modalities Cold Pack/Ice Massage,Electric Stimulation,Hot Packs, Infrared Therapy,Ultrasound Next Visit Focus/Plan Next Note Type Treatment Note Next Visit Plan Assess response to last tx. Next tx assess manual support, US, laser, Stretching/ flexibility, strengthening
--- NOTE | 2023-06-24 11:33 | PT.OTN ---
Current Diagnoses Pain in left shoulder (06/24/23) Stiffness of left shoulder, not elsewhere classified (06/24/23) Other specified postprocedural states (06/24/23) Physical Therapy Treatment Note PT-OP-A Visit Information Start: 03/01/23 15:21 Freq: Status: Active Protocol: Document 06/24/23 10:48 SP (Rec: 06/24/23 11:45 SP [id number]) Out-Patient Physical Therapy Visit Information Visit Information Visit Type Treatment Note Visit Start Time 10:48 Visit Stop Time 11:33 Total Visit Minutes 45 Visit Number 14 Number of MACHINE HOOP MAKER HELPER Visits 2 Evaluation Information Evaluation Date 03/01/23 PT-OP-B Current Condition Start: 03/01/23 15:21 Freq: Status: Active Protocol: Document 03/01/23 12:05 DCW (Rec: 03/01/23 15:42 DCW [id number]) Current Condition History of Current Condition Onset Date 08/17/22 Current Complaints L shoulder pain & stiffness s/ p arthroscopy, biceps tenotomy decompression History of Current Condition Pt is a 67 year old male presenting more than six months s/p L shoulder arthroscopy, biceps tenotomy decompression. Pt reports he underwent post-op therapy, but was discharged at the end of November, was told that they had done all they could for him. At pt's follow-up with his surgeon in December, surgeon felt he required more PT, including US and cold laser, and referred him to this clinic. Has been very compliant with prior HEP, but has not made much progress, and is fairly significantly limited with ROM, due to both weakness and pain. Unable to perform any overhead activities, or reach back or laterally. Unable to reach up to the top shelf at home. Prior Treatments and Tests Prior PT from post-op through November Treatment Goals Patient/Caregiver Goals Improve shoulder ROM and pain levels PT-OP-C Subjective Start: 03/01/23 15:21 Freq: Status: Active Protocol: Document 06/24/23 10:48 SP (Rec: 06/24/23 11:45 SP [id number]) OP-PT Subjective Patient Comments Patient Comments Pt reports his R shld was hurting Sat later afternoon out of no where, Saturday was fine. PT-OP-E Functional Tests Start: 03/01/23 15:21 Freq: Status: Active Protocol: Document 05/30/23 10:15 DCW (Rec: 05/30/23 10:26 DCW [id number]) Functional Tests Apley's Scratch Test Action 1- Left Lateral opposite shoulder Action 1- Right Lateral opposite shoulder Action 2- Left C7 Action 2- Right T2 Action 3- Left T12 Action 3- Right T8 PT-OP-F Manual Assessment Start: 03/01/23 15:21 Freq: Status: Active Protocol: Document 05/30/23 10:15 DCW (Rec: 05/30/23 10:26 DCW [id number]) Manual Assessments Joint Mobility Assessment Joint Mobility Assessment Limited PROM in joint mobility with all directions PT-OP-K Range of Motion Start: 03/01/23 15:21 Freq: Status: Active Protocol: Document 06/18/23 07:30 SP (Rec: 06/18/23 08:19 SP [id number]) Shoulder Goniometric Range of Motion Shoulder Left Active Shoulder ROM WFL No Testing Position Standing Flexion 111 Abduction 92 External Rotation at 0 degrees Abduction 68 Internal Rotation Behind Back (text) L2 Comments L shld AROM 06/18/23: FF same 111 deg ABD gained 7 deg (92 deg) ER gained 24 deg (68 de IR (behind back) same L2 PT-OP-M Strength Start: 03/01/23 15:21 Freq: Status: Active Protocol: Document 05/30/23 10:15 DCW (Rec: 05/30/23 10:26 DCW [id number]) Shoulder Strength Shoulder Manual Muscle Testing Right Flexion 4+ Good+ Abduction (C5) 4+ Good+ External Rotation 4+ Good+ Internal Rotation 4+ Good+ Left Flexion 2+ Poor+ Abduction (C5) 2+ Poor+ External Rotation 4 Good Internal Rotation 4+ Good+ Comments Increased pain with resisted flexion and external rotation PT-OP-Q Treatments Start: 03/01/23 15:21 Freq: Status: Active Protocol: Document 06/24/23 10:48 SP (Rec: 06/24/23 11:45 SP [id number]) Cardio Equipment Upper Body Ergometer (UBE) Duration (Minutes) 6 RPM 60 Seat Position 10 Height 6 Other reports feels fine, good work Therapeutic Exercises Sitting Exercises eccentric FF Sitting Exercise Name Reviewed for HEP: AAROM FF, ABD Side left Resistance TB #3 Equipment Used Mirror front Reps/Minutes 10 reps Comments approx 170s (not measured) Standing Exercises AAROM ABD eccentric ER Standing Exercise Name initiated standing ABD: concentric IR/eccentric ER Side left Resistance Tb #1 peach Equipment Used mirror front self assess positioning Reps/Minutes x8 reps Comments cued/ ed maintain ABD 90 deg elbow bent, humeral rotation, no punch motion Wall Walking AAROM/stretch Standing Exercise Name HEP reviewed: FF, ABD Side left Reps/Minutes 8 reps each Comments cued posture positioning for decrease compensations IR stretch Standing Exercise Name reviewed self: IR Side left Equipment Used norberto, mirror for self correction feedback Reps/Minutes 20 reps then 10 SH x 3 reps Comments cued self level shld feedback, allow stretch for AAROM behind back Chop/Lift Standing Exercise Name Chop/Lift Resistance Green (anchored OH/top door) PT-OP-R Modalities Start: 03/01/23 15:52 Freq: Status: Active Protocol: Document 05/23/23 10:15 DCW (Rec: 05/23/23 11:02 DCW [id number]) Infrared Treatment Treatment Left Anterior Shoulder Duration (Minutes) 2 Dosage (Joules) 124 Body Position Supine Continuous/Pulsed Continuous Ultrasound Therapy Treatment Left Anterior Shoulder Treatment Duration (minutes) 8 Patient Position Supine Coupling Medium Ultrasound Gel Applicator Size (cm2) 5 Frequency Setting (mHz) 1 Mode Setting Continuous Duty Cycle 100% Intensity Setting (w/cm2) 1.0 PT-OP-T Assessment and Plan Start: 03/01/23 15:21 Freq: Status: Active Protocol: Document 06/24/23 10:48 SP (Rec: 06/24/23 11:45 SP [id number]) Physical Therapy Assessment Goals Two Impairment Pt has difficulty participating in current HEP due to shoulder weakness Utilities Manager Goal (LTG) Pt to improve left shoulder strength to at least 3+/5 in order to improve ability to perform HEP, including overhead activities. LTG Duration 07/31/23 - improving One Impairment Pt demonstrates significant limitations in L shoulder active ROM Utilities Manager Goal (LTG) Pt to improve AROM in both flexion and abduction to at least 120? in order to improve ability to participate in cutter out and placing things away on higher shelves. 06/18/23: improving: FF 111 deg , ABD 92 deg, ER 68 deg, IR behind back L2. LTG Duration 07/31/23 - improving Assessment Summary Assessment Tx focused on stretching and AAROM L shld, tactile cues and education body positioning for proper alignment/form to allow gain ROM FF, ABD, ABD/ER to improve reaching into cabinet and scratch his back. Pt report little sore anterior L shld but feels better able to move into more range and how do at home. See phone pics seated eccentric FF, ABD, demonstrated decrease L shld compensations. Physical Therapy Plan Frequency and Duration Frequency of Treatment 2x/Week Plan of Care Start Date 05/30/23 Plan of Care End Date 07/31/23 Therapeutic Interventions Therapeutic Interventions Gait Training,Home Exercise Program,Joint Mobilizations, Manual Therapy,Neuromuscular Re-education,Patient/Caregiver Education,Self-Care/Home Management,Soft Tissue Mobilization,Therapeutic Activities,Therapeutic Exercises Modalities Cold Pack/Ice Massage,Electric Stimulation,Hot Packs, Infrared Therapy,Ultrasound Next Visit Focus/Plan Next Note Type Treatment Note Next Visit Plan recheck eccentric FF, abd with TB assist. Next tx assess manual support, US, laser, Stretching/ flexibility, strengthening
--- NOTE | 2023-06-26 11:44 | PT.OTN ---
Current Diagnoses Pain in left shoulder (06/26/23) Stiffness of left shoulder, not elsewhere classified (06/26/23) Other specified postprocedural states (06/26/23) Physical Therapy Treatment Note PT-OP-A Visit Information Start: 03/01/23 15:21 Freq: Status: Active Protocol: Document 06/26/23 11:04 DCW (Rec: 06/26/23 11:43 DCW [id number]) Out-Patient Physical Therapy Visit Information Visit Information Visit Type Treatment Note Visit Start Time 11:04 Visit Stop Time 11:45 Total Visit Minutes 41 Visit Number 15 Number of CHILD NURSE Visits 0 Evaluation Information Evaluation Date 03/01/23 PT-OP-B Current Condition Start: 03/01/23 15:21 Freq: Status: Active Protocol: Document 03/01/23 12:05 DCW (Rec: 03/01/23 15:42 DCW [id number]) Current Condition History of Current Condition Onset Date 08/17/22 Current Complaints L shoulder pain & stiffness s/ p arthroscopy, biceps tenotomy decompression History of Current Condition Pt is a 67 year old male presenting more than six months s/p L shoulder arthroscopy, biceps tenotomy decompression. Pt reports he underwent post-op therapy, but was discharged at the end of November, was told that they had done all they could for him. At pt's follow-up with his surgeon in December, surgeon felt he required more PT, including US and cold laser, and referred him to this clinic. Has been very compliant with prior HEP, but has not made much progress, and is fairly significantly limited with ROM, due to both weakness and pain. Unable to perform any overhead activities, or reach back or laterally. Unable to reach up to the top shelf at home. Prior Treatments and Tests Prior PT from post-op through November Treatment Goals Patient/Caregiver Goals Improve shoulder ROM and pain levels PT-OP-C Subjective Start: 03/01/23 15:21 Freq: Status: Active Protocol: Document 06/26/23 11:04 DCW (Rec: 06/26/23 11:43 DCW [id number]) OP-PT Subjective Patient Comments Patient Comments It feels good today, but yesterday and last night, it was not a happy camper. PT-OP-E Functional Tests Start: 03/01/23 15:21 Freq: Status: Active Protocol: Document 05/30/23 10:15 DCW (Rec: 05/30/23 10:26 DCW [id number]) Functional Tests Apley's Scratch Test Action 1- Left Lateral opposite shoulder Action 1- Right Lateral opposite shoulder Action 2- Left C7 Action 2- Right T2 Action 3- Left T12 Action 3- Right T8 PT-OP-F Manual Assessment Start: 03/01/23 15:21 Freq: Status: Active Protocol: Document 05/30/23 10:15 DCW (Rec: 05/30/23 10:26 DCW [id number]) Manual Assessments Joint Mobility Assessment Joint Mobility Assessment Limited PROM in joint mobility with all directions PT-OP-K Range of Motion Start: 03/01/23 15:21 Freq: Status: Active Protocol: Document 06/18/23 07:30 SP (Rec: 06/18/23 08:19 SP [id number]) Shoulder Goniometric Range of Motion Shoulder Left Active Shoulder ROM WFL No Testing Position Standing Flexion 111 Abduction 92 External Rotation at 0 degrees Abduction 68 Internal Rotation Behind Back (text) L2 Comments L shld AROM 06/18/23: FF same 111 deg ABD gained 7 deg (92 deg) ER gained 24 deg (68 de IR (behind back) same L2 PT-OP-M Strength Start: 03/01/23 15:21 Freq: Status: Active Protocol: Document 05/30/23 10:15 DCW (Rec: 05/30/23 10:26 DCW [id number]) Shoulder Strength Shoulder Manual Muscle Testing Right Flexion 4+ Good+ Abduction (C5) 4+ Good+ External Rotation 4+ Good+ Internal Rotation 4+ Good+ Left Flexion 2+ Poor+ Abduction (C5) 2+ Poor+ External Rotation 4 Good Internal Rotation 4+ Good+ Comments Increased pain with resisted flexion and external rotation PT-OP-Q Treatments Start: 03/01/23 15:21 Freq: Status: Active Protocol: Document 06/26/23 11:04 DCW (Rec: 06/26/23 11:43 DCW [id number]) Cardio Equipment Upper Body Ergometer (UBE) Duration (Minutes) 6 RPM 60 Seat Position 10 Height 6 Gym Equipment Cable Column (Body Solid) Rows Resistance 40# Lat Pull Down Details End-range stretch OH at end of exercise Resistance 50# Shuttle Rebound Ball toss Exercise Details L ball toss Comments weighted 1000 g red ball Therapeutic Ball Stabilization Exercise Details Stabilization vs perturbation in 90 deg flexion Ball Size/Color Blue - 45 cm Body Position Supine Therapeutic Exercises Standing Exercises Chop/Lift Standing Exercise Name Chop/Lift Resistance Double Blue Chest press Standing Exercise Name Chest press Side bilateral Resistance 10#-> 7# each Other Exercises Body Blade Other Exercise Name Flexion, Abduction Side left Resistance Medium Black BB Wall Push-ups Other Exercise Name Inclined push-ups @ plinth Resistance off plinth x8 reps Comments cued head neutral Manual Therapy Treatment Joint Mobilizations Scapulothoracic Joint L scapulothoracic Direction Medial/Lateral Grade III Body Position Supine GH Joint L GH Direction Inferior Grade III Body Position Supine Other Other Manual Treatments Manual PROM Stretching PT-OP-R Modalities Start: 03/01/23 15:52 Freq: Status: Active Protocol: Document 05/23/23 10:15 DCW (Rec: 05/23/23 11:02 DCW [id number]) Infrared Treatment Treatment Left Anterior Shoulder Duration (Minutes) 2 Dosage (Joules) 124 Body Position Supine Continuous/Pulsed Continuous Ultrasound Therapy Treatment Left Anterior Shoulder Treatment Duration (minutes) 8 Patient Position Supine Coupling Medium Ultrasound Gel Applicator Size (cm2) 5 Frequency Setting (mHz) 1 Mode Setting Continuous Duty Cycle 100% Intensity Setting (w/cm2) 1.0 PT-OP-T Assessment and Plan Start: 03/01/23 15:21 Freq: Status: Active Protocol: Document 06/26/23 11:04 DCW (Rec: 06/26/23 11:43 DCW [id number]) Physical Therapy Assessment Goals Two Impairment Pt has difficulty participating in current HEP due to shoulder weakness Biologist Aide Goal (LTG) Pt to improve left shoulder strength to at least 3+/5 in order to improve ability to perform HEP, including overhead activities. LTG Duration 07/31/23 - improving One Impairment Pt demonstrates significant limitations in L shoulder active ROM Biologist Aide Goal (LTG) Pt to improve AROM in both flexion and abduction to at least 120? in order to improve ability to participate in book sewer and placing things away on higher shelves. 06/18/23: improving: FF 111 deg , ABD 92 deg, ER 68 deg, IR behind back L2. LTG Duration 07/31/23 - improving Assessment Summary Assessment Continued focus on end-range stretching and strengthening, showing slight improvements with AROM Physical Therapy Plan Frequency and Duration Frequency of Treatment 2x/Week Plan of Care Start Date 05/30/23 Plan of Care End Date 07/31/23 Therapeutic Interventions Therapeutic Interventions Gait Training,Home Exercise Program,Joint Mobilizations, Manual Therapy,Neuromuscular Re-education,Patient/Caregiver Education,Self-Care/Home Management,Soft Tissue Mobilization,Therapeutic Activities,Therapeutic Exercises Modalities Cold Pack/Ice Massage,Electric Stimulation,Hot Packs, Infrared Therapy,Ultrasound Next Visit Focus/Plan Next Note Type Treatment Note Next Visit Plan recheck eccentric FF, abd with TB assist. Next tx assess manual support, US, laser, Stretching/ flexibility, strengthening
--- NOTE | 2023-07-02 13:29 | PT.OTN ---
Current Diagnoses Pain in left shoulder (07/02/23) Stiffness of left shoulder, not elsewhere classified (07/02/23) Other specified postprocedural states (07/02/23) Physical Therapy Treatment Note PT-OP-A Visit Information Start: 03/01/23 15:21 Freq: Status: Active Protocol: Document 07/02/23 12:45 DCW (Rec: 07/02/23 13:29 DCW [id number]) Out-Patient Physical Therapy Visit Information Visit Information Visit Type Treatment Note Visit Start Time 12:45 Visit Stop Time 13:30 Total Visit Minutes 45 Visit Number 16 Number of LAYOUT ARTIST Visits 0 Evaluation Information Evaluation Date 03/01/23 PT-OP-B Current Condition Start: 03/01/23 15:21 Freq: Status: Active Protocol: Document 03/01/23 12:05 DCW (Rec: 03/01/23 15:42 DCW [id number]) Current Condition History of Current Condition Onset Date 08/17/22 Current Complaints L shoulder pain & stiffness s/ p arthroscopy, biceps tenotomy decompression History of Current Condition Pt is a 67 year old male presenting more than six months s/p L shoulder arthroscopy, biceps tenotomy decompression. Pt reports he underwent post-op therapy, but was discharged at the end of November, was told that they had done all they could for him. At pt's follow-up with his surgeon in December, surgeon felt he required more PT, including US and cold laser, and referred him to this clinic. Has been very compliant with prior HEP, but has not made much progress, and is fairly significantly limited with ROM, due to both weakness and pain. Unable to perform any overhead activities, or reach back or laterally. Unable to reach up to the top shelf at home. Prior Treatments and Tests Prior PT from post-op through November Treatment Goals Patient/Caregiver Goals Improve shoulder ROM and pain levels PT-OP-C Subjective Start: 03/01/23 15:21 Freq: Status: Active Protocol: Document 07/02/23 12:45 DCW (Rec: 07/02/23 13:29 DCW [id number]) OP-PT Subjective Patient Comments Patient Comments The shoulder is fine, at the moment, what's really bothering me in the calf, I was out walking on a trail this weekend and something happened to it. PT-OP-E Functional Tests Start: 03/01/23 15:21 Freq: Status: Active Protocol: Document 05/30/23 10:15 DCW (Rec: 05/30/23 10:26 DCW [id number]) Functional Tests Apley's Scratch Test Action 1- Left Lateral opposite shoulder Action 1- Right Lateral opposite shoulder Action 2- Left C7 Action 2- Right T2 Action 3- Left T12 Action 3- Right T8 PT-OP-F Manual Assessment Start: 03/01/23 15:21 Freq: Status: Active Protocol: Document 05/30/23 10:15 DCW (Rec: 05/30/23 10:26 DCW [id number]) Manual Assessments Joint Mobility Assessment Joint Mobility Assessment Limited PROM in joint mobility with all directions PT-OP-K Range of Motion Start: 03/01/23 15:21 Freq: Status: Active Protocol: Document 06/18/23 07:30 SP (Rec: 06/18/23 08:19 SP [id number]) Shoulder Goniometric Range of Motion Shoulder Left Active Shoulder ROM WFL No Testing Position Standing Flexion 111 Abduction 92 External Rotation at 0 degrees Abduction 68 Internal Rotation Behind Back (text) L2 Comments L shld AROM 06/18/23: FF same 111 deg ABD gained 7 deg (92 deg) ER gained 24 deg (68 de IR (behind back) same L2 PT-OP-M Strength Start: 03/01/23 15:21 Freq: Status: Active Protocol: Document 05/30/23 10:15 DCW (Rec: 05/30/23 10:26 DCW [id number]) Shoulder Strength Shoulder Manual Muscle Testing Right Flexion 4+ Good+ Abduction (C5) 4+ Good+ External Rotation 4+ Good+ Internal Rotation 4+ Good+ Left Flexion 2+ Poor+ Abduction (C5) 2+ Poor+ External Rotation 4 Good Internal Rotation 4+ Good+ Comments Increased pain with resisted flexion and external rotation PT-OP-Q Treatments Start: 03/01/23 15:21 Freq: Status: Active Protocol: Document 07/02/23 12:45 DCW (Rec: 07/02/23 13:29 DCW [id number]) Cardio Equipment Upper Body Ergometer (UBE) Duration (Minutes) 6 RPM 60 Seat Position 12 Height 6 Gym Equipment Cable Column (Body Solid) Rows Resistance 40# Lat Pull Down Details End-range stretch OH at end of exercise Resistance 50# Shuttle Rebound Ball toss Exercise Details L ball toss Comments weighted 1000 g red ball Therapeutic Ball Stabilization Exercise Details Stabilization vs perturbation in 90 deg flexion Ball Size/Color Blue - 45 cm Body Position Supine Therapeutic Exercises Standing Exercises Chest press Standing Exercise Name Chest press Side bilateral Resistance 7# each Other Exercises Body Blade Other Exercise Name Flexion, Abduction Side left Resistance Medium Black BB Manual Therapy Treatment Joint Mobilizations Scapulothoracic Joint L scapulothoracic Direction Medial/Lateral Grade III Body Position Supine GH Joint L GH Direction Inferior Grade III Body Position Supine Other Other Manual Treatments Manual PROM Stretching PT-OP-R Modalities Start: 03/01/23 15:52 Freq: Status: Active Protocol: Document 05/23/23 10:15 DCW (Rec: 05/23/23 11:02 DCW [id number]) Infrared Treatment Treatment Left Anterior Shoulder Duration (Minutes) 2 Dosage (Joules) 124 Body Position Supine Continuous/Pulsed Continuous Ultrasound Therapy Treatment Left Anterior Shoulder Treatment Duration (minutes) 8 Patient Position Supine Coupling Medium Ultrasound Gel Applicator Size (cm2) 5 Frequency Setting (mHz) 1 Mode Setting Continuous Duty Cycle 100% Intensity Setting (w/cm2) 1.0 PT-OP-T Assessment and Plan Start: 03/01/23 15:21 Freq: Status: Active Protocol: Document 07/02/23 12:45 DCW (Rec: 07/02/23 13:29 DCW [id number]) Physical Therapy Assessment Goals Two Impairment Pt has difficulty participating in current HEP due to shoulder weakness Fdc Goal (LTG) Pt to improve left shoulder strength to at least 3+/5 in order to improve ability to perform HEP, including overhead activities. LTG Duration 07/31/23 - improving One Impairment Pt demonstrates significant limitations in L shoulder active ROM Fdc Goal (LTG) Pt to improve AROM in both flexion and abduction to at least 120? in order to improve ability to participate in fuel oil clerk and placing things away on higher shelves. 06/18/23: improving: FF 111 deg , ABD 92 deg, ER 68 deg, IR behind back L2. LTG Duration 07/31/23 - improving Assessment Summary Assessment Pt experiencing much less overall pain with daily activities, still fairly significantly limited with overhead activities/ROM Physical Therapy Plan Frequency and Duration Frequency of Treatment 2x/Week Plan of Care Start Date 05/30/23 Plan of Care End Date 07/31/23 Therapeutic Interventions Therapeutic Interventions Gait Training,Home Exercise Program,Joint Mobilizations, Manual Therapy,Neuromuscular Re-education,Patient/Caregiver Education,Self-Care/Home Management,Soft Tissue Mobilization,Therapeutic Activities,Therapeutic Exercises Modalities Cold Pack/Ice Massage,Electric Stimulation,Hot Packs, Infrared Therapy,Ultrasound Next Visit Focus/Plan Next Note Type Treatment Note Next Visit Plan recheck eccentric FF, abd with TB assist. Next tx assess manual support, US, laser, Stretching/ flexibility, strengthening
--- NOTE | 2023-07-04 11:30 | PT.OTN ---
Current Diagnoses Pain in left shoulder (07/04/23) Stiffness of left shoulder, not elsewhere classified (07/04/23) Other specified postprocedural states (07/04/23) Physical Therapy Treatment Note PT-OP-A Visit Information Start: 03/01/23 15:21 Freq: Status: Active Protocol: Document 07/04/23 10:49 SP (Rec: 07/04/23 11:39 SP [id number]) Out-Patient Physical Therapy Visit Information Visit Information Visit Type Treatment Note Visit Start Time 10:49 Visit Stop Time 11:30 Total Visit Minutes 41 Visit Number 17 Number of VETERINARY TOXICOLOGIST Visits 1 Evaluation Information Evaluation Date 03/01/23 PT-OP-B Current Condition Start: 03/01/23 15:21 Freq: Status: Active Protocol: Document 03/01/23 12:05 DCW (Rec: 03/01/23 15:42 DCW [id number]) Current Condition History of Current Condition Onset Date 08/17/22 Current Complaints L shoulder pain & stiffness s/ p arthroscopy, biceps tenotomy decompression History of Current Condition Pt is a 67 year old male presenting more than six months s/p L shoulder arthroscopy, biceps tenotomy decompression. Pt reports he underwent post-op therapy, but was discharged at the end of November, was told that they had done all they could for him. At pt's follow-up with his surgeon in December, surgeon felt he required more PT, including US and cold laser, and referred him to this clinic. Has been very compliant with prior HEP, but has not made much progress, and is fairly significantly limited with ROM, due to both weakness and pain. Unable to perform any overhead activities, or reach back or laterally. Unable to reach up to the top shelf at home. Prior Treatments and Tests Prior PT from post-op through November Treatment Goals Patient/Caregiver Goals Improve shoulder ROM and pain levels PT-OP-C Subjective Start: 03/01/23 15:21 Freq: Status: Active Protocol: Document 07/04/23 10:49 SP (Rec: 07/04/23 11:39 SP [id number]) OP-PT Subjective Patient Comments Patient Comments Pt reports was camping and didn't get do exercises over the weekend wed-Sat. PT-OP-E Functional Tests Start: 03/01/23 15:21 Freq: Status: Active Protocol: Document 05/30/23 10:15 DCW (Rec: 05/30/23 10:26 DCW [id number]) Functional Tests Apley's Scratch Test Action 1- Left Lateral opposite shoulder Action 1- Right Lateral opposite shoulder Action 2- Left C7 Action 2- Right T2 Action 3- Left T12 Action 3- Right T8 PT-OP-F Manual Assessment Start: 03/01/23 15:21 Freq: Status: Active Protocol: Document 05/30/23 10:15 DCW (Rec: 05/30/23 10:26 DCW [id number]) Manual Assessments Joint Mobility Assessment Joint Mobility Assessment Limited PROM in joint mobility with all directions PT-OP-K Range of Motion Start: 03/01/23 15:21 Freq: Status: Active Protocol: Document 06/18/23 07:30 SP (Rec: 06/18/23 08:19 SP [id number]) Shoulder Goniometric Range of Motion Shoulder Left Active Shoulder ROM WFL No Testing Position Standing Flexion 111 Abduction 92 External Rotation at 0 degrees Abduction 68 Internal Rotation Behind Back (text) L2 Comments L shld AROM 06/18/23: FF same 111 deg ABD gained 7 deg (92 deg) ER gained 24 deg (68 de IR (behind back) same L2 PT-OP-M Strength Start: 03/01/23 15:21 Freq: Status: Active Protocol: Document 05/30/23 10:15 DCW (Rec: 05/30/23 10:26 DCW [id number]) Shoulder Strength Shoulder Manual Muscle Testing Right Flexion 4+ Good+ Abduction (C5) 4+ Good+ External Rotation 4+ Good+ Internal Rotation 4+ Good+ Left Flexion 2+ Poor+ Abduction (C5) 2+ Poor+ External Rotation 4 Good Internal Rotation 4+ Good+ Comments Increased pain with resisted flexion and external rotation PT-OP-Q Treatments Start: 03/01/23 15:21 Freq: Status: Active Protocol: Document 07/04/23 10:49 SP (Rec: 07/04/23 11:39 SP [id number]) Cardio Equipment Upper Body Ergometer (UBE) Duration (Minutes) 6 RPM 60 Seat Position 12 Height 6 Other 3 min f/b Gym Equipment Cable Column (Body Solid) Rows Resistance 40# (45# next tx) Reps/Time long bar- x20 Lat Pull Down Details End-range stretch OH at end of exercise Resistance 50# (55# next tx) Reps/Time x20 Shuttle Rebound Ball toss Exercise Details L ball toss (3rd bracket from top) Reps/Duration x20 Comments weighted 1000 g red ball cued try eccentric abd/ER Therapeutic Ball Stabilization Exercise Details Stabilization vs perturbation in 90 deg flexion Reps/Duration 1 min Therapeutic Exercises Supine Exercises ABCs Supine Exercise Name added HEP: ed quick reactive mov'ts Side left Resistance 3#>5# DB Reps/Minutes A-Z Comments cued 4 [place] space at 90 deg FF pec stretch Supine Exercise Name various angles abd: 60*, 90*, 120* Side bilateral Equipment Used over noodle on table Reps/Minutes 20SH x3 pos Comments very tight higher ROM, limited , fascial scrunches Flexion Supine Exercise Name 1. Duran Flexion /c PVC 2. SIngle Side bilateral Resistance 5#>3#DB Equipment Used pillow under head Comments cued knees bent, TA/ LS neutral, slower pacing pause end range stretch Sidelying Exercises Abduction Sidelying Exercise Name Shoulder Abduction Side left Resistance 5#>3# DB Reps/Minutes x8 reps Comments tactile cues stacked on side, slow con/eccentric end range, scapular UR Standing Exercises Self STMs Standing Exercise Name L shld: trap, infraspin, interscap, pec, prox bicep Side left Equipment Used ball wall Reps/Minutes 1 min Comments good feedback self massage throw/ eccentric return Standing Exercise Name Initiated for carryover abd/ ER ROM support Resistance TB #3 Reps/Minutes x15 reps Comments cued quick eccentric return and allow stretch abd/er Chest press Standing Exercise Name Chest press over head Side bilateral Resistance 7# each Equipment Used use mirror for self aware alignment DB over shld Reps/Minutes x10 Comments cued PT-OP-R Modalities Start: 03/01/23 15:52 Freq: Status: Active Protocol: Document 05/23/23 10:15 DCW (Rec: 05/23/23 11:02 DCW [id number]) Infrared Treatment Treatment Left Anterior Shoulder Duration (Minutes) 2 Dosage (Joules) 124 Body Position Supine Continuous/Pulsed Continuous Ultrasound Therapy Treatment Left Anterior Shoulder Treatment Duration (minutes) 8 Patient Position Supine Coupling Medium Ultrasound Gel Applicator Size (cm2) 5 Frequency Setting (mHz) 1 Mode Setting Continuous Duty Cycle 100% Intensity Setting (w/cm2) 1.0 PT-OP-T Assessment and Plan Start: 03/01/23 15:21 Freq: Status: Active Protocol: Document 07/04/23 10:49 SP (Rec: 07/04/23 11:39 SP [id number]) Physical Therapy Assessment Goals Two Impairment Pt has difficulty participating in current HEP due to shoulder weakness Dimension Mill Worker Goal (LTG) Pt to improve left shoulder strength to at least 3+/5 in order to improve ability to perform HEP, including overhead activities. LTG Duration 07/31/23 - improving One Impairment Pt demonstrates significant limitations in L shoulder active ROM Long-Term Goal (LTG) Pt to improve AROM in both flexion and abduction to at least 120? in order to improve ability to participate in manager concrete and placing things away on higher shelves. 06/18/23: improving: FF 111 deg , ABD 92 deg, ER 68 deg, IR behind back L2. LTG Duration 07/31/23 - improving Assessment Summary Assessment Pt had good effort during ther ex. Improves with FF scapular tactile cues ROM with ed change to use hand wt vs usually performs dowel with 10 # leg wt for individual focus and slow pacing for controlled mov't and less UT/pec recruitment. Pt improved eccentric catch with change angle trampoline and understanding use TB home, recheck next tx and provide HO if wants. Physical Therapy Plan Frequency and Duration Frequency of Treatment 2x/Week Plan of Care Start Date 05/30/23 Plan of Care End Date 07/31/23 Therapeutic Interventions Therapeutic Interventions Gait Training,Home Exercise Program,Joint Mobilizations, Manual Therapy,Neuromuscular Re-education,Patient/Caregiver Education,Self-Care/Home Management,Soft Tissue Mobilization,Therapeutic Activities,Therapeutic Exercises Modalities Cold Pack/Ice Massage,Electric Stimulation,Hot Packs, Infrared Therapy,Ultrasound Next Visit Focus/Plan Next Note Type Treatment Note Next Visit Plan Recheck TB punch/ eccentric catch w/ TB for home HEP, provide HO. POC:Next tx assess manual support, US, laser, Stretching /flexibility, strengthening
--- NOTE | 2023-07-08 10:45 | PT.OTN ---
Current Diagnoses Pain in left shoulder (07/08/23) Stiffness of left shoulder, not elsewhere classified (07/08/23) Other specified postprocedural states (07/08/23) Physical Therapy Treatment Note PT-OP-A Visit Information Start: 03/01/23 15:21 Freq: Status: Active Protocol: Document 07/08/23 10:00 SP (Rec: 07/08/23 10:47 SP [id number]) Out-Patient Physical Therapy Visit Information Visit Information Visit Type Treatment Note Visit Note PN next visit. Visit Start Time 10:00 Visit Stop Time 10:45 Total Visit Minutes 45 Visit Number 18 Number of LAND LEASE INFORMATION CLERK Visits 2 Evaluation Information Evaluation Date 03/01/23 PT-OP-B Current Condition Start: 03/01/23 15:21 Freq: Status: Active Protocol: Document 03/01/23 12:05 DCW (Rec: 03/01/23 15:42 DCW [id number]) Current Condition History of Current Condition Onset Date 08/17/22 Current Complaints L shoulder pain & stiffness s/ p arthroscopy, biceps tenotomy decompression History of Current Condition Pt is a 67 year old male presenting more than six months s/p L shoulder arthroscopy, biceps tenotomy decompression. Pt reports he underwent post-op therapy, but was discharged at the end of November, was told that they had done all they could for him. At pt's follow-up with his surgeon in December, surgeon felt he required more PT, including US and cold laser, and referred him to this clinic. Has been very compliant with prior HEP, but has not made much progress, and is fairly significantly limited with ROM, due to both weakness and pain. Unable to perform any overhead activities, or reach back or laterally. Unable to reach up to the top shelf at home. Prior Treatments and Tests Prior PT from post-op through November Treatment Goals Patient/Caregiver Goals Improve shoulder ROM and pain levels PT-OP-C Subjective Start: 03/01/23 15:21 Freq: Status: Active Protocol: Document 07/08/23 10:00 SP (Rec: 07/08/23 10:47 SP [id number]) OP-PT Subjective Patient Comments Patient Comments Pt reports he was reaching out in front and had some pain in his L shld. Is compliant with HEP at home gym. PT-OP-E Functional Tests Start: 03/01/23 15:21 Freq: Status: Active Protocol: Document 05/30/23 10:15 DCW (Rec: 05/30/23 10:26 DCW [id number]) Functional Tests Apley's Scratch Test Action 1- Left Lateral opposite shoulder Action 1- Right Lateral opposite shoulder Action 2- Left C7 Action 2- Right T2 Action 3- Left T12 Action 3- Right T8 PT-OP-F Manual Assessment Start: 03/01/23 15:21 Freq: Status: Active Protocol: Document 05/30/23 10:15 DCW (Rec: 05/30/23 10:26 DCW [id number]) Manual Assessments Joint Mobility Assessment Joint Mobility Assessment Limited PROM in joint mobility with all directions PT-OP-K Range of Motion Start: 03/01/23 15:21 Freq: Status: Active Protocol: Document 06/18/23 07:30 SP (Rec: 06/18/23 08:19 SP [id number]) Shoulder Goniometric Range of Motion Shoulder Left Active Shoulder ROM WFL No Testing Position Standing Flexion 111 Abduction 92 External Rotation at 0 degrees Abduction 68 Internal Rotation Behind Back (text) L2 Comments L shld AROM 06/18/23: FF same 111 deg ABD gained 7 deg (92 deg) ER gained 24 deg (68 de IR (behind back) same L2 PT-OP-M Strength Start: 03/01/23 15:21 Freq: Status: Active Protocol: Document 05/30/23 10:15 DCW (Rec: 05/30/23 10:26 DCW [id number]) Shoulder Strength Shoulder Manual Muscle Testing Right Flexion 4+ Good+ Abduction (C5) 4+ Good+ External Rotation 4+ Good+ Internal Rotation 4+ Good+ Left Flexion 2+ Poor+ Abduction (C5) 2+ Poor+ External Rotation 4 Good Internal Rotation 4+ Good+ Comments Increased pain with resisted flexion and external rotation PT-OP-Q Treatments Start: 03/01/23 15:21 Freq: Status: Active Protocol: Document 07/08/23 10:00 SP (Rec: 07/08/23 10:47 SP [id number]) Cardio Equipment Upper Body Ergometer (UBE) Duration (Minutes) 6 RPM 60 Seat Position 12 Height 6 Other 3 min f/b Gym Equipment Cable Column (Body Solid) Rows Resistance 55# Reps/Time triangle attachment x20 Lat Pull Down Details End-range stretch OH underhand more comfort Resistance 55# Reps/Time x20 Shuttle Rebound Ball toss Exercise Details L ball toss (3rd bracket from top) Reps/Duration x20 Comments weighted 1000 g red ball cued try eccentric abd/ER Therapeutic Exercises Supine Exercises ABCs Supine Exercise Name reviewed HEP: quick reactive mov'ts Side left Resistance 5# DB Reps/Minutes A-Z Comments cued 4 bois forte space at 90 deg FF Flexion Supine Exercise Name SIngle (138>145 deg) Side bilateral Resistance 3#>5#DB Equipment Used pillow under head Comments cued knees bent, TA/ LS neutral, slower pacing pause end range stretch Sidelying Exercises Abduction Sidelying Exercise Name Shoulder Abduction (112 deg) Side left Resistance 3# DB Reps/Minutes 8 reps x2 Comments tactile cues stacked on side, slow con/eccentric end range, scapular UR Standing Exercises throw/ eccentric return Standing Exercise Name added HEP: abd w/ ER AAROM support Side left Resistance TB #3 Equipment Used mirror front self cue level shld allow ER Reps/Minutes x10 reps Comments cued quick eccentric return and allow stretch abd/er Wall Walking AAROM/stretch Standing Exercise Name HEP reviewed: FF Side left Equipment Used facing wall Reps/Minutes 8 reps each Comments cued posture positioning, level shld IR stretch Standing Exercise Name reviewed self: IR Side left Equipment Used towel (peforms with norberto home) Reps/Minutes 10 SH x6 reps Comments cued self level shld feedback, allow stretch for AAROM behind back Chest press Standing Exercise Name Chest press over head Side bilateral Resistance 7#> 5#> AAROM OH facing wall pause stretch 2 SH Equipment Used use mirror for self aware alignment DB over shld Reps/Minutes 4 min total Comments cued UE press over L shld reps with best alignment Manual Therapy Treatment Soft Tissue Mobilization L shld Body Location supraspinatus, UT, infrasp, pec mine, lat, teres Mobilization Type Strumming,Sustained Pressure, Other Intensity/Depth Moderate Body Position side and supine Comments MWM during FF & ABD, ABD w/ ER , scapulothoracic mobs Joint Mobilizations Scapulothoracic Joint L scapulothoracic Direction Medial/Lateral Grade II Body Position side Comments with ABD GH Joint L GH Direction inferior, PA Grade III Body Position Sidelying Comments w/ FF PT-OP-R Modalities Start: 03/01/23 15:52 Freq: Status: Active Protocol: Document 05/23/23 10:15 DCW (Rec: 05/23/23 11:02 DCW [id number]) Infrared Treatment Treatment Left Anterior Shoulder Duration (Minutes) 2 Dosage (Joules) 124 Body Position Supine Continuous/Pulsed Continuous Ultrasound Therapy Treatment Left Anterior Shoulder Treatment Duration (minutes) 8 Patient Position Supine Coupling Medium Ultrasound Gel Applicator Size (cm2) 5 Frequency Setting (mHz) 1 Mode Setting Continuous Duty Cycle 100% Intensity Setting (w/cm2) 1.0 PT-OP-T Assessment and Plan Start: 03/01/23 15:21 Freq: Status: Active Protocol: Document 07/08/23 10:00 SP (Rec: 07/08/23 10:47 SP [id number]) Physical Therapy Assessment Goals Two Impairment Pt has difficulty participating in current HEP due to shoulder weakness [employer] Goal (LTG) Pt to improve left shoulder strength to at least 3+/5 in order to improve ability to perform HEP, including overhead activities. LTG Duration 07/31/23 - improving One Impairment Pt demonstrates significant limitations in L shoulder active ROM Scrum Product Owner Goal (LTG) Pt to improve AROM in both flexion and abduction to at least 120? in order to improve ability to participate in communications representative and placing things away on higher shelves. 06/18/23: improving: FF 111 deg , ABD 92 deg, ER 68 deg, IR behind back L2. 07/08/23: supine flexion 145 deg, sidelying 112 deg LTG Duration 07/31/23 - improving 07/08/23 Assessment Summary Assessment Pt making gains in ROM L shld with use eccentric resistance standing TB and DB supine/side . Tactile cues for alignment and use mirror for self corrections level shld carryover at home. Ed and cuing for FF facing wall to assist posturing and reduce to no resistance at home until gains AROM OH. Physical Therapy Plan Frequency and Duration Frequency of Treatment 2x/Week Plan of Care Start Date 05/30/23 Plan of Care End Date 07/31/23 Therapeutic Interventions Therapeutic Interventions Gait Training,Home Exercise Program,Joint Mobilizations, Manual Therapy,Neuromuscular Re-education,Patient/Caregiver Education,Self-Care/Home Management,Soft Tissue Mobilization,Therapeutic Activities,Therapeutic Exercises Modalities Cold Pack/Ice Massage,Electric Stimulation,Hot Packs, Infrared Therapy,Ultrasound Next Visit Focus/Plan Next Note Type Progress Note Next Visit Plan PN next tx. Recheck TB punch/ eccentric catch w/ TB for home HEP, provide HO. POC:Next tx assess manual support, US, laser, Stretching /flexibility, strengthening
--- NOTE | 2023-07-11 10:16 | PT.OTN ---
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 Pt reports he underwent post-op therapy, but was discharged at the end of November, was told that they had done all they could for him. At pt's follow-up with his surgeon in December, surgeon felt he required more PT, including US and cold laser, and referred him to this clinic. Has been very compliant with prior HEP, but has not made much progress, and is fairly significantly limited with ROM, due to both weakness and pain. Unable to perform any overhead activities, or reach back or laterally. Unable to reach up to the top shelf at home. Prior Treatments and Tests Prior PT from post-op through November Treatment Goals Patient/Caregiver Goals Improve shoulder ROM and pain levels PT-OP-C Subjective Start: 03/01/23 15:21 Freq: Status: Active Protocol: Document 07/11/23 09:30 DCW (Rec: 07/11/23 10:16 DCW [id number]) OP-PT Subjective Patient Comments Patient Comments Pt reports his shoulder is fairly sore and kept him up most of the night last night after using a pitchfork to perform some yard work yesterday. PT-OP-E Functional Tests Start: 03/01/23 15:21 Freq: Status: Active Protocol: Document 05/30/23 10:15 DCW (Rec: 05/30/23 10:26 DCW [id number]) Functional Tests Apley's Scratch Test Action 1- Left Lateral opposite shoulder Action 1- Right Lateral opposite shoulder Action 2- Left C7 Action 2- Right T2 Action 3- Left T12 Action 3- Right T8 PT-OP-F Manual Assessment Start: 03/01/23 15:21 Freq: Status: Active Protocol: Document 05/30/23 10:15 DCW (Rec: 05/30/23 10:26 DCW [id number]) Manual Assessments Joint Mobility Assessment Joint Mobility Assessment Limited PROM in joint mobility with all directions PT-OP-K Range of Motion Start: 03/01/23 15:21 Freq: Status: Active Protocol: Document 07/11/23 09:30 DCW (Rec: 07/11/23 09:40 DCW [id number]) Shoulder Goniometric Range of Motion Shoulder Left Active Shoulder ROM WFL No Testing Position Standing Flexion 115 Abduction 102 External Rotation at 0 degrees Abduction 68 Internal Rotation Behind Back (text) T10 PT-OP-M Strength Start: 03/01/23 15:21 Freq: Status: Active Protocol: Document 05/30/23 10:15 DCW (Rec: 05/30/23 10:26 DCW [id number]) Shoulder Strength Shoulder Manual Muscle Testing Right Flexion 4+ Good+ Abduction (C5) 4+ Good+ External Rotation 4+ Good+ Internal Rotation 4+ Good+ Left Flexion 2+ Poor+ Abduction (C5) 2+ Poor+ External Rotation 4 Good Internal Rotation 4+ Good+ Comments Increased pain with resisted flexion and external rotation PT-OP-Q Treatments Start: 03/01/23 15:21 Freq: Status: Active Protocol: Document 07/11/23 09:30 DCW (Rec: 07/11/23 10:16 DCW [id number]) Cardio Equipment Upper Body Ergometer (UBE) Duration (Minutes) 6 RPM 60 Seat Position 12 Height 6 Other 3 min f/b Gym Equipment Cable Column (Body Solid) Rows Resistance 55# Reps/Time triangle attachment x20 Lat Pull Down Details End-range stretch OH underhand more comfort Resistance 55# Reps/Time x20 Shuttle Rebound Ball toss Exercise Details L ball toss (3rd bracket from top) Reps/Duration x20 Comments weighted 1000 g red ball cued try eccentric abd/ER Therapeutic Exercises Standing Exercises Chop/Lift Standing Exercise Name Chop/Lift Resistance Double Blue Chest press Standing Exercise Name Chest press over head Side bilateral Resistance 7# each Equipment Used use mirror for self aware alignment DB over shld Reps/Minutes x10 Comments cued Other Exercises Body Blade Other Exercise Name Flexion, Abduction Side left Resistance Medium Black BB Manual Therapy Treatment Soft Tissue Mobilization L shld Body Location supraspinatus, UT, infrasp, pec mine, lat, teres Mobilization Type Strumming,Sustained Pressure, Other Intensity/Depth Moderate Body Position side and supine Comments MWM during FF & ABD, ABD w/ ER , scapulothoracic mobs Joint Mobilizations Scapulothoracic Joint L scapulothoracic Direction Medial/Lateral Grade II Body Position side Comments with ABD GH Joint L GH Direction inferior, PA Grade III Body Position Sidelying Comments w/ FF PT-OP-R Modalities Start: 03/01/23 15:52 Freq: Status: Active Protocol: Document 05/23/23 10:15 DCW (Rec: 05/23/23 11:02 DCW [id number]) Infrared Treatment Treatment Left Anterior Shoulder Duration (Minutes) 2 Dosage (Joules) 124 Body Position Supine Continuous/Pulsed Continuous Ultrasound Therapy Treatment Left Anterior Shoulder Treatment Duration (minutes) 8 Patient Position Supine Coupling Medium Ultrasound Gel Applicator Size (cm2) 5 Frequency Setting (mHz) 1 Mode Setting Continuous Duty Cycle 100% Intensity Setting (w/cm2) 1.0 PT-OP-T Assessment and Plan Start: 03/01/23 15:21 Freq: Status: Active Protocol: Document 07/11/23 09:30 DCW (Rec: 07/11/23 10:16 DCW [id number]) Physical Therapy Assessment Goals Two Impairment Pt has difficulty participating in current HEP due to shoulder weakness Handcrew Foreman Goal (LTG) Pt to improve left shoulder strength to at least 3+/5 in order to improve ability to perform HEP, including overhead activities. LTG Duration 07/31/23 - improving One Impairment Pt demonstrates significant limitations in L shoulder active ROM Snf Goal (LTG) Pt to improve AROM in both flexion and abduction to at least 120? in order to improve ability to participate in mechanical test engineer and placing things away on higher shelves. 07/11/23: improving: FF 115 deg , ABD 102 deg, ER 68 deg, IR behind back T10. LTG Duration 07/31/23 - improving 07/11/23 Assessment Summary Assessment Pt showing fairly good progress overall, AROM continues to improve, although fairly slowly. Following his two scheduled visit next week, pt will be on vacation for the remainder of the year. Discussed with pt that if he would like to continue upon return from his vacation, he will need a new referral. Physical Therapy Plan Frequency and Duration Frequency of Treatment 2x/Week Plan of Care Start Date 05/30/23 Plan of Care End Date 07/31/23 Therapeutic Interventions Therapeutic Interventions Gait Training,Home Exercise Program,Joint Mobilizations, Manual Therapy,Neuromuscular Re-education,Patient/Caregiver Education,Self-Care/Home Management,Soft Tissue Mobilization,Therapeutic Activities,Therapeutic Exercises Modalities Cold Pack/Ice Massage,Electric Stimulation,Hot Packs, Infrared Therapy,Ultrasound Next Visit Focus/Plan Next Note Type Treatment Note Next Visit Plan Recheck TB punch/ eccentric catch w/ TB for home HEP, provide HO. POC:Next tx assess manual support, Stretching/ flexibility, strengthening
--- NOTE | 2023-07-15 09:43 | PT.OTN ---
Current Diagnoses Pain in left shoulder (07/15/23) Stiffness of left shoulder, not elsewhere classified (07/15/23) Other specified postprocedural states (07/15/23) Physical Therapy Treatment Note PT-OP-A Visit Information Start: 03/01/23 15:21 Freq: Status: Active Protocol: Document 07/15/23 09:04 SP (Rec: 07/15/23 09:46 SP [id number]) Out-Patient Physical Therapy Visit Information Visit Information Visit Type Treatment Note Visit Start Time 09:04 Visit Stop Time 09:43 Total Visit Minutes 39 Visit Number 20 Number of MARKET RESEARCH WORKER Visits 1 Evaluation Information Evaluation Date 03/01/23 PT-OP-B Current Condition Start: 03/01/23 15:21 Freq: Status: Active Protocol: Document 03/01/23 12:05 DCW (Rec: 03/01/23 15:42 DCW [id number]) Current Condition History of Current Condition Onset Date 08/17/22 Current Complaints L shoulder pain & stiffness s/ p arthroscopy, biceps tenotomy decompression History of Current Condition Pt is a 67 year old male presenting more than six months s/p L shoulder arthroscopy, biceps tenotomy decompression. Pt reports he underwent post-op therapy, but was discharged at the end of November, was told that they had done all they could for him. At pt's follow-up with his surgeon in December, surgeon felt he required more PT, including US and cold laser, and referred him to this clinic. Has been very compliant with prior HEP, but has not made much progress, and is fairly significantly limited with ROM, due to both weakness and pain. Unable to perform any overhead activities, or reach back or laterally. Unable to reach up to the top shelf at home. Prior Treatments and Tests Prior PT from post-op through November Treatment Goals Patient/Caregiver Goals Improve shoulder ROM and pain levels PT-OP-C Subjective Start: 03/01/23 15:21 Freq: Status: Active Protocol: Document 07/15/23 09:04 SP (Rec: 07/15/23 09:46 SP [id number]) OP-PT Subjective Patient Comments Patient Comments Pt reports doing well. Is headed on road trip [place] and , next tx will be his last. Knows if needs return will get new referral. PT-OP-E Functional Tests Start: 03/01/23 15:21 Freq: Status: Active Protocol: Document 05/30/23 10:15 DCW (Rec: 05/30/23 10:26 DCW [id number]) Functional Tests Apley's Scratch Test Action 1- Left Lateral opposite shoulder Action 1- Right Lateral opposite shoulder Action 2- Left C7 Action 2- Right T2 Action 3- Left T12 Action 3- Right T8 PT-OP-F Manual Assessment Start: 03/01/23 15:21 Freq: Status: Active Protocol: Document 05/30/23 10:15 DCW (Rec: 05/30/23 10:26 DCW [id number]) Manual Assessments Joint Mobility Assessment Joint Mobility Assessment Limited PROM in joint mobility with all directions PT-OP-K Range of Motion Start: 03/01/23 15:21 Freq: Status: Active Protocol: Document 07/11/23 09:30 DCW (Rec: 07/11/23 09:40 DCW [id number]) Shoulder Goniometric Range of Motion Shoulder Left Active Shoulder ROM WFL No Testing Position Standing Flexion 115 Abduction 102 External Rotation at 0 degrees Abduction 68 Internal Rotation Behind Back (text) T10 PT-OP-M Strength Start: 03/01/23 15:21 Freq: Status: Active Protocol: Document 05/30/23 10:15 DCW (Rec: 05/30/23 10:26 DCW [id number]) Shoulder Strength Shoulder Manual Muscle Testing Right Flexion 4+ Good+ Abduction (C5) 4+ Good+ External Rotation 4+ Good+ Internal Rotation 4+ Good+ Left Flexion 2+ Poor+ Abduction (C5) 2+ Poor+ External Rotation 4 Good Internal Rotation 4+ Good+ Comments Increased pain with resisted flexion and external rotation PT-OP-Q Treatments Start: 03/01/23 15:21 Freq: Status: Active Protocol: Document 07/15/23 09:04 SP (Rec: 07/15/23 09:46 SP [id number]) Cardio Equipment Upper Body Ergometer (UBE) Duration (Minutes) 6 RPM 55 Seat Position 12 Height 6 Other 3 min f/b Gym Equipment Cable Column (Body Solid) Rows Resistance 55# Reps/Time triangle attachment x20 Lat Pull Down Details End-range stretch OH underhand more comfort Resistance 55# Reps/Time x30 Shuttle Rebound Ball toss Exercise Details L ball toss (3rd bracket from top) Reps/Duration x20 Comments weighted 1000 g red ball cued try eccentric abd/ER Therapeutic Exercises Standing Exercises Self STMs Standing Exercise Name L shld: trap, infraspin, interscap, distal lat Side left Equipment Used ball wall Reps/Minutes 1 min Comments good feedback self massage Wall Walking AAROM/stretch Standing Exercise Name HEP reviewed: FF Side left Equipment Used facing wall Reps/Minutes 20 SH x3 reps Comments cued level shld- pre post manual IR stretch Standing Exercise Name reviewed self: IR Side left Equipment Used norberto Reps/Minutes 10 SH x10 reps Comments cued self level shld feedback, allow stretch for AAROM behind back Chop/Lift Standing Exercise Name Chop/Lift Side left Resistance Double Blue Reps/Minutes 12, 20 reps Comments cued slow eccentric stretch allowance for progress ROM Chest press Standing Exercise Name Chest press over head Side bilateral Resistance 7# each Equipment Used use mirror for self aware alignment DB over shld Reps/Minutes x10 Comments cued press wt over shld. Manual Therapy Treatment Soft Tissue Mobilization L shld Body Location supraspinatus, UT, infrasp, pec mine, lat, teres Mobilization Type Strumming,Sustained Pressure, Other Intensity/Depth Moderate Body Position side and supine Comments MWM during FF & ABD, ABD w/ ER , scapulothoracic mobs Joint Mobilizations GH Joint L GH Direction inferior, PA Grade III Body Position Sidelying Comments w/ FF PT-OP-R Modalities Start: 03/01/23 15:52 Freq: Status: Active Protocol: Document 05/23/23 10:15 DCW (Rec: 05/23/23 11:02 DCW [id number]) Infrared Treatment Treatment Left Anterior Shoulder Duration (Minutes) 2 Dosage (Joules) 124 Body Position Supine Continuous/Pulsed Continuous Ultrasound Therapy Treatment Left Anterior Shoulder Treatment Duration (minutes) 8 Patient Position Supine Coupling Medium Ultrasound Gel Applicator Size (cm2) 5 Frequency Setting (mHz) 1 Mode Setting Continuous Duty Cycle 100% Intensity Setting (w/cm2) 1.0 PT-OP-T Assessment and Plan Start: 03/01/23 15:21 Freq: Status: Active Protocol: Document 07/15/23 09:04 SP (Rec: 07/15/23 09:46 SP [id number]) Physical Therapy Assessment Goals Two Impairment Pt has difficulty participating in current HEP due to shoulder weakness Official Court Reporter Goal (LTG) Pt to improve left shoulder strength to at least 3+/5 in order to improve ability to perform HEP, including overhead activities. LTG Duration 07/31/23 - improving One Impairment Pt demonstrates significant limitations in L shoulder active ROM Halfway Goal (LTG) Pt to improve AROM in both flexion and abduction to at least 120? in order to improve ability to participate in easement worker and placing things away on higher shelves. 07/11/23: improving: FF 115 deg , ABD 102 deg, ER 68 deg, IR behind back T10. LTG Duration 07/31/23 - improving 07/11/23 Assessment Summary Assessment Pt improved self corrections in alignment during ther ex. Gained little more FF post manual and ed with pt performance self STMs over posterolateral L scap reaching over head. Physical Therapy Plan Frequency and Duration Frequency of Treatment 2x/Week Plan of Care Start Date 05/30/23 Plan of Care End Date 07/31/23 Therapeutic Interventions Therapeutic Interventions Gait Training,Home Exercise Program,Joint Mobilizations, Manual Therapy,Neuromuscular Re-education,Patient/Caregiver Education,Self-Care/Home Management,Soft Tissue Mobilization,Therapeutic Activities,Therapeutic Exercises Modalities Cold Pack/Ice Massage,Electric Stimulation,Hot Packs, Infrared Therapy,Ultrasound Next Visit Focus/Plan Next Note Type Discharge Summary Next Visit Plan 1 more appt, DC, pt leaving out of town and ready for continue on own. Is aware can get new referral if needed when returns in Oct.
--- NOTE | 2023-07-18 10:07 | PT.OTN ---
Current Diagnoses Pain in left shoulder (07/18/23) Stiffness of left shoulder, not elsewhere classified (07/18/23) Other specified postprocedural states (07/18/23) Physical Therapy Treatment Note PT-OP-A Visit Information Start: 03/01/23 15:21 Freq: Status: Active Protocol: Document 07/18/23 09:30 DCW (Rec: 07/18/23 10:07 DCW [id number]) Out-Patient Physical Therapy Visit Information Visit Information Visit Type Discharge Summary Visit Start Time 09:30 Visit Stop Time 10:00 Total Visit Minutes 30 Visit Number 21 Number of TOP LOADER Visits 0 Evaluation Information Evaluation Date 03/01/23 PT-OP-B Current Condition Start: 03/01/23 15:21 Freq: Status: Active Protocol: Document 03/01/23 12:05 DCW (Rec: 03/01/23 15:42 DCW [id number]) Current Condition History of Current Condition Onset Date 08/17/22 Current Complaints L shoulder pain & stiffness s/ p arthroscopy, biceps tenotomy decompression History of Current Condition Pt is a 67 year old male presenting more than six months s/p L shoulder arthroscopy, biceps tenotomy decompression. Pt reports he underwent post-op therapy, but was discharged at the end of November, was told that they had done all they could for him. At pt's follow-up with his surgeon in December, surgeon felt he required more PT, including US and cold laser, and referred him to this clinic. Has been very compliant with prior HEP, but has not made much progress, and is fairly significantly limited with ROM, due to both weakness and pain. Unable to perform any overhead activities, or reach back or laterally. Unable to reach up to the top shelf at home. Prior Treatments and Tests Prior PT from post-op through November Treatment Goals Patient/Caregiver Goals Improve shoulder ROM and pain levels PT-OP-C Subjective Start: 03/01/23 15:21 Freq: Status: Active Protocol: Document 07/18/23 09:30 DCW (Rec: 07/18/23 10:07 DCW [id number]) OP-PT Subjective Patient Comments Patient Comments Pt feels so-so about how his shoulder is doing. Notes he waxed his 5th wheel this week, and it caused quite a bit of soreness. PT-OP-E Functional Tests Start: 03/01/23 15:21 Freq: Status: Active Protocol: Document 05/30/23 10:15 DCW (Rec: 05/30/23 10:26 DCW [id number]) Functional Tests Apley's Scratch Test Action 1- Left Lateral opposite shoulder Action 1- Right Lateral opposite shoulder Action 2- Left C7 Action 2- Right T2 Action 3- Left T12 Action 3- Right T8 PT-OP-F Manual Assessment Start: 03/01/23 15:21 Freq: Status: Active Protocol: Document 05/30/23 10:15 DCW (Rec: 05/30/23 10:26 DCW [id number]) Manual Assessments Joint Mobility Assessment Joint Mobility Assessment Limited PROM in joint mobility with all directions PT-OP-K Range of Motion Start: 03/01/23 15:21 Freq: Status: Active Protocol: Document 07/11/23 09:30 DCW (Rec: 07/11/23 09:40 DCW [id number]) Shoulder Goniometric Range of Motion Shoulder Left Active Shoulder ROM WFL No Testing Position Standing Flexion 115 Abduction 102 External Rotation at 0 degrees Abduction 68 Internal Rotation Behind Back (text) T10 PT-OP-M Strength Start: 03/01/23 15:21 Freq: Status: Active Protocol: Document 05/30/23 10:15 DCW (Rec: 05/30/23 10:26 DCW [id number]) Shoulder Strength Shoulder Manual Muscle Testing Right Flexion 4+ Good+ Abduction (C5) 4+ Good+ External Rotation 4+ Good+ Internal Rotation 4+ Good+ Left Flexion 2+ Poor+ Abduction (C5) 2+ Poor+ External Rotation 4 Good Internal Rotation 4+ Good+ Comments Increased pain with resisted flexion and external rotation PT-OP-Q Treatments Start: 03/01/23 15:21 Freq: Status: Active Protocol: Document 07/18/23 09:30 DCW (Rec: 07/18/23 10:07 DCW [id number]) Cardio Equipment Upper Body Ergometer (UBE) Duration (Minutes) 6 RPM 60 Seat Position 10 Height 6 Other 3 min f/b Gym Equipment Shuttle Rebound Ball toss Exercise Details L ball toss (3rd bracket from top) Reps/Duration x20 Comments weighted 1000 g red ball cued try eccentric abd/ER Therapeutic Exercises Standing Exercises Flexion Standing Exercise Name Shoulder Flexion Side bilateral Resistance Lv 4 T-band Abduction Standing Exercise Name Shoulder Abduction Side bilateral Resistance Lv 4 T-band Other Exercises Body Blade Other Exercise Name Flexion, Abduction Side left Resistance Medium Black BB Wall clock Other Exercise Name Forearm wall slide Side bilateral Resistance Lv 3 T-band Manual Therapy Treatment Soft Tissue Mobilization L shld Body Location supraspinatus, UT, infrasp, pec mine, lat, teres Mobilization Type Strumming,Sustained Pressure, Other Intensity/Depth Moderate Body Position side and supine Comments MWM during FF & ABD, ABD w/ ER , scapulothoracic mobs Joint Mobilizations Scapulothoracic Joint L scapulothoracic Direction Medial/Lateral Grade II Body Position side Comments with ABD GH Joint L GH Direction inferior, PA Grade III Body Position Sidelying Comments w/ FF PT-OP-R Modalities Start: 03/01/23 15:52 Freq: Status: Active Protocol: Document 05/23/23 10:15 DCW (Rec: 05/23/23 11:02 DCW [id number]) Infrared Treatment Treatment Left Anterior Shoulder Duration (Minutes) 2 Dosage (Joules) 124 Body Position Supine Continuous/Pulsed Continuous Ultrasound Therapy Treatment Left Anterior Shoulder Treatment Duration (minutes) 8 Patient Position Supine Coupling Medium Ultrasound Gel Applicator Size (cm2) 5 Frequency Setting (mHz) 1 Mode Setting Continuous Duty Cycle 100% Intensity Setting (w/cm2) 1.0 PT-OP-T Assessment and Plan Start: 03/01/23 15:21 Freq: Status: Active Protocol: Document 07/18/23 09:30 DCW (Rec: 07/18/23 10:07 DCW [id number]) Physical Therapy Assessment Goals Two Impairment Pt has difficulty participating in current HEP due to shoulder weakness Acetylene Cutter Goal (LTG) Pt to improve left shoulder strength to at least 3+/5 in order to improve ability to perform HEP, including overhead activities. LTG Duration 07/31/23 - improving One Impairment Pt demonstrates significant limitations in L shoulder active ROM Penitentiary Goal (LTG) Pt to improve AROM in both flexion and abduction to at least 120? in order to improve ability to participate in orthopedic designer and placing things away on higher shelves. 07/11/23: improving: FF 115 deg , ABD 102 deg, ER 68 deg, IR behind back T10. LTG Duration 07/31/23 - improving 8/17/23 Progress Towards Goals Progress Towards Goals Progressing Toward Goals Assessment Summary Assessment Pt discharging from skilled PT at this time, will be on a road trip for the next three months. Pt has made good progress overall, however still limited with end-range ROM in his left shoulder. Passive flexion to 151, passive abduction increased to 164. Physical Therapy Plan Frequency and Duration Frequency of Treatment 2x/Week Plan of Care Start Date 05/30/23 Plan of Care End Date 07/31/23 Therapeutic Interventions Therapeutic Interventions Gait Training,Home Exercise Program,Joint Mobilizations, Manual Therapy,Neuromuscular Re-education,Patient/Caregiver Education,Self-Care/Home Management,Soft Tissue Mobilization,Therapeutic Activities,Therapeutic Exercises Modalities Cold Pack/Ice Massage,Electric Stimulation,Hot Packs, Infrared Therapy,Ultrasound Discharge Physical Therapy Discharge Reasons No Longer Attending PT Next Visit Focus/Plan Next Note Type Discharge Summary
== END 2023-07-22 12:27 | disposition home or self-care (01) ==
LOC: PHYS 09:30
PROVIDERS: Referring Provider Orthopaedic Surgery; Visit Provider Orthopaedic Surgery
DX: Z98.890 Other specified postprocedural states (principal); M25.512 Pain in left shoulder; M25.612 Stiffness of left shoulder, not elsewhere classified
CPT/HCPCS: 97035; 97110; 97140; 97161